=== PATIENT | male | born 1990 | race Caucasian/White ===

== ENCOUNTER 2023-08-05 13:56 | Emergency (ER) | payer OTHER, SELFPAY ==
--- NOTE | ~2023-08-05 | US_ITS ---
EXAMINATION: US VENOUS ULTRASOUND WITH DOPPLER LOWER EXTREMITY, LEFT CLINICAL INFORMATION: Swelling COMPARISON: None available. TECHNIQUE: Ultrasound of the deep veins is performed from the hip to the calf with compression sonography and color and pulse Doppler assessment. Spectral analysis with color-flow imaging is performed. FINDINGS: There is echogenic, occlusive clot is identified in the external iliac vein, common femoral vein or popliteal vein, greater saphenous vein. This veins are not compressible and revealed normal respiratory variations and augmentations. Evaluation of veins below the knee is limited due to edema There is no significant popliteal fossa cyst. US/US venous duplex LE LT IMPRESSION: DVT demonstrated in the left lower extremity.
--- NOTE | 2023-08-05 15:02 | ED_ITS ---
HPI - General Adult General Chief complaint: Extremity Injury, Lower Stated complaint: L Groin Leg Swelling S/P Injury Last Wk Time Seen by Provider: 08/05/23 17:12 Source: patient Mode of arrival: ambulatory Limitations: no limitations History of Present Illness HPI narrative: Patient comes to the emergency room complaining of 2 days of lower extremity edema and pain. Patient states that approximately a week ago, patient was helping friend move, patient thought that he injured his back and groin area with heavy lifting. Patient went to another hospital few days ago, patient was diagnosed with sciatica, prescribed prednisone and gabapentin. Patient states that yesterday he woke up with a swollen leg, patient was hoping that he would go away by itself. However, today patient woke up with worsening swelling and pain of the left lower extremity. Patient denies any chest pain or shortness of breath. Related Data Previous Rx's Medication Instructions Recorded apixaban 5 mg (74 tabs) tablets in 5 mg PO BID #74 ea 08/05/23 a dose pack (Reactful DVT-PE Treat 30D Start) oxycodone 5 mg tablet 5 mg PO BID PRN pain #7 tabs 08/05/23 Allergies Allergy/AdvReac Type Severity Reaction Status Date / Time No Known Allergies Allergy Verified 08/05/23 15:07 Review of Systems 2 Review of Systems: Constitutional : No Weight loss, No Fever, No Chills, No Night Sweats, No Fatigue, No Malaise ENT/Mouth : No Hearing loss, No Ear Pain, No Nasal Congestion, No Sinus Pain, No Hoarseness, No sore throat, No Rhinorrhea, No Swallowing Difficulty Eyes: No Eye Pain, No Swelling, No Redness, No Foreign Body, No Discharge, No Vision Changes Cardiovascular : No Chest Pain, No SOB, No Dyspnea on Exertion, No Orthopnea, No Edema, No Palpitations Respiratory : No Cough, No Sputum, No Wheezing, No Smoke Exposure, No Dyspnea Gastrointestinal : No Nausea, No Vomiting, No Diarrhea, No Constipation, No abdominal Pain, No Hematochezia, No Melena Genitourinary : no irregular bleeding, No Dysuria, No Urinary Frequency, No Hematuria, No Urinary Incontinence, No Urgency, No Flank Pain, No Urinary Flow Changes, No Hesitancy Musculoskeletal : Complaining of left lower extremity swelling and pain Skin : No Skin Lesions, No rash Neuro : No Weakness, No Numbness, No Paresthesias, No Loss of Consciousness, No Dizziness, No Headache Psych : No Anxiety/Panic, No Depression, No SI/HI/AH/VH, No Social Issues, Heme/Lymph: No Bruising, No Bleeding,No Lymphadenopathy Endocrine : No Polyuria, No Polydipsia, No Temperature Intolerance [facility] Past Medical History Medical History (Updated 08/05/23 @ 17:30 by Dana Jacobsen MD) DVT (deep venous thrombosis) Social History Social History Advance Directives: No Advance Directives Information Provided: Yes Physical Exam ED Vital Signs: Vital Signs - 24 hr 08/05/23 15:06 08/05/23 17:07 Temperature 98 F 98.2 F Pulse Rate 93 94 Respiratory Rate 22 H 16 Blood Pressure 143/88 H 117/70 Pulse Oximetry 100 97 Oxygen Delivery Method Room Air Room Air BMI result Body Mass Index 37.0 Const Other: Appearance: Alert. Oriented X3. No acute distress. Eyes: Pupils equal, round and reactive to light. ENT: Pharynx normal. Neck: Normal inspection. Neck supple. No lymph nodes noted. No crepitus CVS: Normal heart rate and rhythm. Pulses normal. Normal S1 and S2 Respiratory: No respiratory distress. Breath sounds normal. No Wheezing. No rales Abdomen: Soft and nontender. No rigidity. No distention. Skin: Skin warm and dry. Normal skin color. Normal skin turgor. Extremities: Left lower extremity is significantly more swollen than the right leg. Pain to palpation in the groin area. Plus three pitting edema, no signs of cellulitis Neuro: Oriented X 3. No motor deficit. No sensory deficit. Moving all extremities. No slurred speech. CN 2 through 12 grossly intact Psych: calm, cooperative, normal affect Course Course Course Narrative: This is an RME: Additional HPI, ROS, PE not included below will be deferred to primary provider. This is a [id number], with no known medical history, presenting to the emergency department with a complaint of left leg pain. 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 He states that the next day he started to have back pain radiating down his leg. He went to [facility] and was told that he had sciatica and was discharged on prednisone and gabapentin. He states that the pain is severe and radiates down his entire leg. 3+ pitting edema noted to left lower leg with tenderness. No recent travel, surgeries, hospitalizations. No CP or SOB. Plan: Labs, Xray, US LLE Medical Decision Making Medical Decision Making [facility] Narrative: -my interpretation of labs: Patient's white blood cell count 16.3, likely reactive leukocytosis. -my interpretation of ultrasound, seems positive for DVT -I reviewed the radiology report, patient does have a DVT in the left lower extremity. -I discussed with the patient that I recommend to start blood thinners today. Discussed with the patient risks versus benefits. Patient agreeable. Also, discussed with the patient that if he has any trauma especially to the head, patient is to return to the emergency room, also instructed make sure that he does not have any black stool or blood in the stool. -patient was given the 1st dose of Eliquis in the emergency room, 10 mg Differential Diagnosis Differential Diagnoses: The differential diagnosis associated with the presentation includes (Lower extremity edema, DVT, inguinal strain) Lab Data [facility] Lab Attestation statement: I reviewed the patient's lab results. 08/05/23 15:18 08/05/23 15:18 Labs: Lab Results 08/05/23 Range/Units 15:18 WBC 16.3 H (4.8-10.8) X10*3/uL RBC 4.51 L (4.60-5.80) X10*6/uL Hgb 14.3 (14.0-18.0) g/dl Hct 42.8 (42.0-52.0) % MCV 94.9 (80.0-98.0) fL MCH 31.7 (27.0-33.0) pg MCHC 33.4 (31.0-36.0) g/dl RDW 13.2 (11.0-16.0) % Plt Count 205 (160-400) X10*3/uL MPV 9.4 (9.4-12.4) fL Immature Gran % (Auto) 0.5 H (0.0-0.4) % Neut % (Auto) 81.4 H (45-73) % Lymph % (Auto) 12.4 L (20-40) % [place] % (Auto) 5.3 (2-11) % Eos % (Auto) 0.2 (0-4) % Baso % (Auto) 0.2 (0-2) % Lymph # (Auto) 2.0 (1.2-4.9) X10*3/uL [place] # (Auto) 0.9 (0.1-1.2) X10*3/uL Eos # (Auto) 0.0 (0.0-0.4) X10*3/uL Baso # (Auto) 0.0 (0.0-0.2) X10*3/uL Abs Immat Gran (auto) 0.08 H (0.00-0.03) X10*3/uL Absolute Neuts (auto) 13.3 H (2.0-8.3) x10*3/uL Absolute Nucleated RBC 0.000 (0.0-0.012) X10*3/uL Nucleated RBC % (auto) 0.0 (0.0-0.2) /100WBC PT 11.9 (11.1-13.3) SEC INR 1.0 (0.9-1.1) APTT 29.1 (26.0-36.4) SEC Sodium 137 (135-145) mmol/L Potassium 4.7 (3.3-5.1) mmol/L Chloride 102 (96-108) mmol/L Carbon Dioxide 29 (22-29) mmol/L Anion Gap 11 L (12-20) BUN 13 (9-16) mg/dL Creatinine 0.76 (0.5-1.4) mg/dL Estim Creat Clear Calc 180.6 Estimated GFR > 60 Random Glucose 91 (60-115) mg/dL Calcium 9.1 (8.4-10.2) mg/dL Total Bilirubin 0.6 (0.0-1.0) mg/dL Direct Bilirubin 0.2 (0.0-0.5) mg/dL AST 26 (5-37) U/L ALT 47 H (0-40) U/L Alkaline Phosphatase 65 (39-117) U/L Total Protein 7.8 (6.5-8.0) g/dL Albumin 4.0 (3.5-5.0) g/dL Independent Interpretation I performed an independent interpretation of an: Ultrasound Radiology Impression Discussion of test interpretation with radiology: I have reviewed the radiologist's reading. Radiologist Impression: FINDINGS: There is echogenic, occlusive clot is identified in the external iliac vein, common femoral vein or popliteal vein, greater saphenous vein. This veins are not compressible and revealed normal respiratory variations and augmentations. Evaluation of veins below the knee is limited due to edema There is no significant popliteal fossa cyst. US/US venous duplex LE LT IMPRESSION: DVT demonstrated in the left lower extremity. Critical Care Time Critical Care Time Critical Care Time: Yes Total Critical Care Time: 45 Attestation: I have personally provided critical care time. Time includes review of lab data, radiology results, discussion with consultants, and monitoring for potential decompensation. Intervention performed as documented. Discharge Plan Discharge Clinical Impression: Acute deep vein thrombosis (DVT) of left lower extremity Patient Disposition: Home, Self-Care Instructions: Apixaban (By mouth), Deep Vein Thrombosis (ED) Additional Instructions: Please follow-up with your primary care physician tomorrow. If you have any worsening or new symptoms, please return to the emergency room or call 911 Prescriptions: New Musa DVT-PE Treat 30D Start 5 mg (74 tabs) tablets,dose pack 5 mg PO BID Qty: 74 0RF Rx Instructions: 10 mg b.i.d. for 7 days, then 5 mg b.i.d. oxycodone 5 mg tablet 5 mg PO BID PRN (Reason: pain) Qty: 7 0RF Rx Instructions: Partial Fill upon patient request.
[2023-08-05 15:06] VITALS: BP 143/88; PULSE 93; RESP 22; TEMP 36.6; O2SAT 100; BMI 37.0
[2023-08-05 15:23] LABS: MANUAL DIFF FLAG NO
[2023-08-05 15:26] LABS: Basophils Percent Auto 0.2 % (0-2); Eosinophils Percent Auto 0.2 % (0-4); Hematocrit 42.8 % (42.0-52.0); Hemoglobin 14.3 g/dl (14.0-18.0); Imm Gran Abs Auto 0.08 X10*3/uL (0.00-0.03); Imm Gran Pct Auto 0.5 % (0.0-0.4); Lymphocytes Percent Auto 12.4 % (20-40); Mean Corpuscular HGB Conc 33.4 g/dl (31.0-36.0); Mean Corpuscular Hemoglobin 31.7 pg (27.0-33.0); Mean Corpuscular Volume 94.9 fL (80.0-98.0); Mean Platelet Volume 9.4 fL (9.4-12.4); Monocytes Absolute Auto 0.9 X10*3/uL (0.1-1.2); Monocytes Percent Auto 5.3 % (2-11); Neutrophils Absolute Auto 13.3 x10*3/uL (2.0-8.3); Neutrophils Percent Auto 81.4 % (45-73); Platelet Count 205 X10*3/uL (160-400); Red Blood Count 4.51 X10*6/uL (4.60-5.80); Red Cell Distribution Width 13.2 % (11.0-16.0); White Blood Count 16.3 X10*3/uL (4.8-10.8)
[2023-08-05 15:34] LABS: Prothrombin Time 11.9 SEC (11.1-13.3)
[2023-08-05 15:37] LABS: Partial Thromboplastin Time 29.1 SEC (26.0-36.4)
[2023-08-05 15:38] LABS: Alanine Aminotransferase 47 U/L (0-40); Alkaline Phosphatase 65 U/L (39-117); Anion Gap 11 (12-20); Aspartate Amino Transferase 26 U/L (5-37); Bilirubin Direct 0.2 mg/dL (0.0-0.5); Bilirubin Total 0.6 mg/dL (0.0-1.0); Blood Urea Nitrogen 13 mg/dL (9-16); Calcium 9.1 mg/dL (8.4-10.2); Carbon Dioxide 29 mmol/L (22-29); Chloride 102 mmol/L (96-108); Creatinine Clr Calc Pharmacy 180.6; Estimated Glomerular Filt Rate > 60; Glucose Random 91 mg/dL (60-115); Potassium 4.7 mmol/L (3.3-5.1); Sodium 137 mmol/L (135-145); Total Protein 7.8 g/dL (6.5-8.0)
[2023-08-05 17:07] VITALS: BP 117/70; PULSE 94; RESP 16; TEMP 36.8; O2SAT 97
--- NOTE | 2023-08-05 17:08 | MHC.EDTECH ---
This pct just assumed care of patient ,vitals taken .
[2023-08-05] MEDS: oxyCODONE HCl Immed Release 5 MG TABLET PO (17:44)
[2023-08-05] MEDS: Apixaban 5 MG TABLET 10 MG PO (17:45)
--- NOTE | 2023-08-05 17:48 | PC.NURSE ---
medication administered per provider order. crutch training being formed by tech. pt provided w/ d/c paperwork - able to leave facility once crutches information is relayed.
== END 2023-08-05 17:56 | disposition home or self-care (01) ==
PROVIDERS: Physician Assistant Medical; Emergency Provider Emergency Medicine
DX: I82.402 Acute embolism and thrombosis of unspecified deep veins of left lower extremity (principal); R60.0 Localized edema; M54.50 Low back pain, unspecified; Z79.899 Other long term (current) drug therapy
CPT/HCPCS: 36415; 80048; 80076; 85025; 85610; 85730; 93971; 99284

== ENCOUNTER 2023-08-07 13:42 | Inpatient (IN) | payer OTHER, SELFPAY ==
--- NOTE | ~2023-08-07 | CT_ITS ---
EXAMINATION: CT CHEST ANGIOGRAM PE PROTOCOL CLINICAL INFORMATION: , Reason for Exam known DVT. chest pain. PE? COMPARISON: None TECHNIQUE: Volumetric imaging was performed through the chest. Reformatted coronal and sagittal imaging was performed. 3-D MIP images performed at a dedicated separate workstation. This CT examination was performed using dose optimization techniques as appropriate, variously including the following: *Automated exposure control *Adjustment of mA and/or kV according to patient size (this includes techniques or standardized protocols for targeted exams where dose is matched to indication/reason for exam; i.e. extremities or head) *Use of iterative reconstruction technique CONTRAST: 65 mL of Omnipaque 350 injected DLP: 494 FINDINGS: PULMONARY ARTERIES: There are small partially occlusive emboli in peripheral secondary and tertiary branches of the right and left pulmonary arteries bilaterally. Gonzalez images. There are no large central emboli, no CT evidence of cardiac strain or septal bowing. LINES/TUBES: None LUNGS: Lung Parenchyma: There is no CT evidence of significant lung parenchymal disease. Lung Nodules:There are no significant lung nodules. AIRWAYS: Trachea and bronchi are normal. PLEURA: No pleural effusion or pneumothorax. MEDIASTINUM AND CHERYL: The visualized thyroid gland is unremarkable. No mediastinal, hilar or axillary lymphadenopathy. There is no mediastinal mass. VESSELS: Thoracic aorta is normal in size. HEART AND PERICARDIUM: Heart is normal in size. There is no pericardial effusion. There are no coronary calcifications. CHEST WALL, LOWER NECK, SURROUNDING SOFT TISSUES: Normal VISUALIZED ABDOMEN: Unremarkable BONES: The visualized bony thorax is within normal limits. CT/CT angio chest PE protocol IMPRESSION: * Positive PE. There are small partially occlusive small emboli in secondary and tertiary branches of the right and left pulmonary arteries bilaterally. Gonzalez images. There are no large central emboli, no CT evidence of cardiac strain or septal bowing. * Lungs are clear.
--- NOTE | ~2023-08-07 | US_ITS ---
EXAMINATION: US VENOUS ULTRASOUND WITH DOPPLER LOWER EXTREMITY, LEFT CLINICAL INFORMATION: Pain and swelling. Pulmonary embolism COMPARISON: 08/05/2023 TECHNIQUE: Ultrasound of the deep veins is performed from the hip to the calf with compression sonography and color and pulse Doppler assessment. Spectral analysis with color-flow imaging is performed. FINDINGS: Again note is made of acute appearing thrombus extending from the left external iliac vein through to the popliteal vein. The calf veins are difficult to evaluate but the mid posterior tibial vein and distal posterior tibial vein appear grossly patent. The extension of the deep venous thrombosis appears similar to the 08/05/2023 study. There is no significant popliteal fossa cyst. US/US venous duplex LE LT IMPRESSION: Again note is made of acute appearing thrombus extending from the left external iliac vein through to the popliteal vein. This appears similar to the 08/05/2023 study.
[2023-08-07 13:55] VITALS: BP 111/78; PULSE 100; RESP 18; TEMP 36.8; O2SAT 100; BMI 42.2
--- NOTE | 2023-08-07 13:56 | ECG_ITS ---
Test Reason : sob Blood Pressure : / mmHG Vent. Rate : 088 BPM Atrial Rate : 088 BPM P-R Int : 132 ms QRS Dur : 080 ms QT Int : 366 ms P-R-T Axes : 049 004 015 degrees QTc Int : 442 ms Normal sinus rhythm Normal ECG No previous ECGs available Referred By: Venu Paul Electronically Signed By:NANCY CANO MD
--- NOTE | 2023-08-07 14:02 | ED_ITS ---
HPI - General Adult General Chief complaint: Dyspnea Stated complaint: +DVT/Diff breathing, pain Time Seen by Provider: 08/07/23 14:16 Source: patient Mode of arrival: ambulatory Limitations: no limitations History of Present Illness HPI narrative: 33 year old male recently dx w/ DVT of LLE on 08/05/23 and subsequently started on eliquis presents w/ LLE pain and swelling as well as substernal nonradiating chest pain and shortness of breath. Both of these are worse with exertion and better at rest. Patient does not have a known history of hypercoagulable disorder malignancy. Patient denies fevers, chills, nausea, vomiting, abdominal pain, smoking history, sedentary lifestyle, hormone replacement therapy. Related Data Home Medications Medication Instructions Recorded Confirmed acetaminophen 325 mg tablet 650 mg PO Q6H PRN Headache 08/07/23 08/07/23 (Tylenol) albuterol sulfate 90 mcg/actuation 2 puff inhalation Q4-6H PRN 08/07/23 08/07/23 aerosol inhaler wheezing apixaban 5 mg (74 tabs) tablets in See Rx Instructions .Route .COMPLEX 08/07/23 08/07/23 a dose pack (Eliquis DVT-PE Treat 30D Start) apixaban 5 mg tablet See Rx Instructions .Route .COMPLEX 08/07/23 08/07/23 lidocaine 5 % topical patch 1 patch topical DAILY PRN mild pain 08/07/23 08/07/23 Allergies Allergy/AdvReac Type Severity Reaction Status Date / Time No Known Allergies Allergy Verified 08/07/23 13:55 Review of Systems 2 Review of Systems: Constitutional : No Weight loss, No Fever, No Chills, No Fatigue, No Malaise ENT/Mouth : No sore throat, No Rhinorrhea Eyes: No Eye Pain, No Swelling, No Redness Cardiovascular : No Chest Pain, + SOB, No Dyspnea on Exertion, No Orthopnea, No Edema, No Palpitations Respiratory : No Cough, No Sputum, No Wheezing Gastrointestinal : No Nausea, No Vomiting, No Diarrhea, No Constipation, No abdominal Pain, No Hematochezia, No Melena Genitourinary : No Dysuria, No Urinary Frequency, No Hematuria, Musculoskeletal : No joint pain, No Myalgias, + lower extremity Swelling Skin : No Skin Lesions, No rash Neuro : No Weakness, No Numbness, No Dizziness, No Headache Psych : No Anxiety/Panic, No Depression All other systems reviewed and are negative Yes all other systems are reviewed and are negative [facility] Past Medical History Attestation statement: The following information was validated with the patient. Source: old records reviewed and nursing notes reviewed Medical History DVT (deep venous thrombosis) Family History Family History (Updated 08/07/23 @ 18:08 by FAROOQ Chanel) Other Blood clotting tendency Social History Social History Household Members: Family Housing: Apartment Do you presently have visiting nurse or other home services: No Alcohol intake: current Alcohol intake frequency: holidays/special occasions only Patient Tobacco Use Status: Former Tobacco user Tobacco use type: Cigarette Smoked in Last 30 Days: No Patient Interested in Nicotine Replacement: No Patient Given Instructions on How to Stop Smoking: No Use of substances other than those prescribed or required for medical reasons: No Substance Use Type: Caffiene Currently Displaying Signs/Symptoms of Drug Intoxication Withdrawal: No Any prior treatment program specific to substance use: No Have you been hit, kicked, punched, or otherwise hurt by someone within the past year? If so, by whom?: No Do you feel safe in your current relationship?: No Is there a partner from a previous relationship who is making you feel unsafe now?: No Are you made to feel afraid or neglected: No Advance Directives: No Advance Directives Information Provided: No Advance Directives on File: No Do you have thoughts of harming others: None Do you have a plan to hurt others: No Plan Recently lost weight without trying: No Eating poorly because of decreased appetite: No Nutrition Risks: No Nutritional Risk Poor oral hygiene: No service: No Physical Exam ED Vital Signs: Vital Signs - 24 hr 08/07/23 13:55 08/07/23 16:51 Temperature 98.2 F Pulse Rate 100 93 Respiratory Rate 18 15 Blood Pressure 111/78 122/75 Pulse Oximetry 100 Oxygen Delivery Method Room Air BMI result Body Mass Index 42.2 vss Appearance: Alert.? Oriented X3.? No acute distress.? Head: Normocephalic, atraumatic, no step-offs or deformities Eyes: Pupils equal, round and reactive to light.? Neck: Normal inspection.? Neck supple.? CVS: Normal heart rate and rhythm.? Pulses normal.? Respiratory: No respiratory distress.? Breath sounds normal.? Abdomen: Soft and nontender.? Skin: Skin warm and dry.? Normal skin color.? Normal skin turgor.? Extremities: 5/5 strength to bilateral upper and lower extremities 2+ DP, AT,PT pulsees equal and b/l. LLE swollen 3+ pitting . Normal RLE. Neuro: Oriented X 3.? No motor deficit.? No sensory deficit. CN 2-12 intact Course Course Course Narrative: RME: 33 yold male presents to the ED for left leg swelling with known DVT since last tuesday presents to the ED For chest pain and shorrtness of breath with sorsenin left leg pain. labs, US, and chest CTA ordered. faviola to roomt 22. Vital signs stable Reevaluation(s) Reevaluation #1: CBC with slight leukocytosis, improved when compared to labs on 08/05/2023. There is a normocytic anemia noted. Chemistry unremarkable. Troponin, BNP pending. Time: 15:14 Reevaluation #2: Normal trop and BNp. CTA showing positive pulmonary embolism a small partially occlusive small emboli in the secondary and tertiary branches of the right and left pulmonary arteries. Spoke to Dr. Umana who recommends transitioning to heparin and hospital admission. It will order heparin at this time with bolus as instructed by Dr. Umana. Plan is for hospital admission hospitalist aware. No reports of bleeding prior to initiating heparin. Time: 16:05 Medications Administered Generic Name Dose Route Start Last Admin Trade Name Belinda PRN Reason Stop Dose Admin Acetaminophen 650 mg 08/07/23 16:58 08/08/23 04:11 Acetaminophen 325 Mg Tablet PO 650 mg Q6H PRN Administration Pain, Mild (Pain Scale 1-3) Heparin Sodium (Porcine) 5,500 unit 08/07/23 16:40 08/08/23 08:08 Heparin Sodium,Porcine 5,000 Unit/Ml Vial 40 unit/kg (5500 unit) 5,500 unit IVPUSH Administration PROTOCOL BOLUS PRN 40 unit/kg - Heparin Protocol Protocol Heparin Sodium/Sodium Chloride 25,000 unit in 250 mls @ 0 mls/hr 08/07/23 16:45 08/08/23 08:06 Heparin Sodium,Porcine/1/2ns IVCONT 14 units/kg/hr .Q0M LIBRA 19.21 mls/hr Administration Protocol Per Protocol Morphine Sulfate 4 mg 08/07/23 19:00 08/08/23 08:19 Morphine Sulfate 4 Mg/Ml Cartridge IVPUSH 4 mg Q4H PRN Administration Pain, Severe (Pain Scale 7-10) Protocol Oxycodone HCl 5 mg 08/08/23 09:31 08/08/23 10:53 Oxycodone Hcl Immed Release 5 Mg Tablet PO 5 mg Q4H PRN Administration Pain, Mild (Pain Scale 1-3) Sodium Chloride 3 ml 08/08/23 00:00 08/08/23 08:10 0.9 % Sodium Chloride Flush 3 Ml Syringe IVFLUSH Not Given QSHIFT [facility] Discontinued Medications Generic Name Dose Route Start Last Admin Trade Name Freq PRN Reason Stop Dose Admin Heparin Sodium (Porcine) 10,000 unit 08/07/23 16:40 08/07/23 17:41 Heparin Sodium,Porcine 5,000 Unit/Ml Vial IVPUSH 08/07/23 16:41 10,000 unit ONCE ONE Administration Iohexol 100 ml 08/07/23 15:44 08/07/23 15:44 Iohexol 350 Mg/Ml 100 Ml Infus..Btl IV 08/07/23 15:45 65 ml ONCE ONE Administration Morphine Sulfate 4 mg 08/07/23 16:05 08/07/23 16:09 Morphine Sulfate 4 Mg/Ml Cartridge IVPUSH 08/07/23 16:06 4 mg ONCE ONE Administration Protocol Ondansetron HCl 4 mg 08/07/23 15:45 08/07/23 16:07 Ondansetron Hcl 4 Mg/2 Ml Vial IVPUSH 08/07/23 15:46 4 mg ONCE ONE Administration Medical Decision Making Medical Decision Making [facility] Narrative: 1419 33-year-old male presents with left lower extremity swelling and pain as well as chest pain and shortness of breath for the past few days worsening. Recently diagnosed with DVT and started on Eliquis med compliant. Physical examination significant for 5/5 strength to bilateral upper and lower extremities 2+ DP, AT,PT pulsees equal and b/l. LLE swollen 3+ pitting . Normal RLE. This is likely DVT causing the pain on likely arterial occlusion or threat to limb. Will rule out pulmonary embolism. Unlikely ACS, dissection, pneumothorax or up pneumonia. Plan labs, imaging. Differential Diagnosis Differential Diagnoses: The differential diagnosis associated with the presentation includes This is likely DVT causing the pain on likely arterial occlusion or threat to limb. Will rule out pulmonary embolism. Unlikely ACS, dissection, pneumothorax or up pneumonia. Admission/Observation Consideration of admission/observation: Escalation of care including admission/observation considered possible Lab Data 08/08/23 06:44 08/08/23 06:44 Labs: Lab Results 08/07/23 08/07/23 Range/Units 14:43 16:57 WBC 11.4 H 11.5 H (4.8-10.8) X10*3/uL RBC 4.10 L 3.91 L (4.60-5.80) X10*6/uL Hgb 13.0 L 12.3 L (14.0-18.0) g/dl Hct 38.8 L 36.8 L (42.0-52.0) % MCV 94.6 94.1 (80.0-98.0) fL MCH 31.7 31.5 (27.0-33.0) pg MCHC 33.5 33.4 (31.0-36.0) g/dl RDW 13.0 13.1 (11.0-16.0) % Plt Count 225 210 (160-400) X10*3/uL MPV 8.7 L 8.8 L (9.4-12.4) fL Immature Gran % (Auto) 0.4 (0.0-0.4) % Neut % (Auto) 69.8 (45-73) % Lymph % (Auto) 18.6 L (20-40) % [place] % (Auto) 8.9 (2-11) % Eos % (Auto) 1.7 (0-4) % Baso % (Auto) 0.6 (0-2) % Lymph # (Auto) 2.1 (1.2-4.9) X10*3/uL [place] # (Auto) 1.0 (0.1-1.2) X10*3/uL Eos # (Auto) 0.2 (0.0-0.4) X10*3/uL Baso # (Auto) 0.1 (0.0-0.2) X10*3/uL Abs Immat Gran (auto) 0.05 H (0.00-0.03) X10*3/uL Absolute Neuts (auto) 8.0 (2.0-8.3) x10*3/uL Absolute Nucleated RBC 0.000 0.000 (0.0-0.012) X10*3/uL Nucleated RBC % (auto) 0.0 0.0 (0.0-0.2) /100WBC PT 15.0 H D 14.6 H (11.1-13.3) SEC INR 1.2 H 1.2 H (0.9-1.1) APTT 35.3 D (26.0-36.4) SEC aPTT Heparin Protocol 34.2 L (53-77.9) SEC Sodium 139 (135-145) mmol/L Potassium 4.1 (3.3-5.1) mmol/L Chloride 101 (96-108) mmol/L Carbon Dioxide 29 (22-29) mmol/L Anion Gap 13 (12-20) BUN 10 (9-16) mg/dL Creatinine 0.81 (0.5-1.4) mg/dL Estim Creat Clear Calc 181.8 Estimated GFR > 60 Random Glucose 95 (60-115) mg/dL Calcium 9.1 (8.4-10.2) mg/dL Total Bilirubin 0.8 (0.0-1.0) mg/dL AST 27 (5-37) U/L ALT 41 H (0-40) U/L Alkaline Phosphatase 59 (39-117) U/L Troponin I High Sens < 2.7 (<3.5-35.0) ng/L B-Natriuretic Peptide 15 (<100) pg/mL Total Protein 7.2 (6.5-8.0) g/dL Albumin 3.5 (3.5-5.0) g/dL Critical Care Time Critical Care Time Critical Care Time: Yes Total Critical Care Time: 45 Attestation: I attest to this time spent taking care of the patient, obtaining history, physical, reviewing labs, imaging, speaking to my attending, speaking to specialist. Discharge Plan Discharge Clinical Impression: DVT (deep venous thrombosis) Qualifiers: DVT location: lower extremity Affected thrombotic vein of extremity: iliac C hronicity: acute Laterality: left Qualified Code(s): I82.422 - Acute embolism and thrombosis of left iliac vein Pulmonary embolism Qualifiers: Pulmonary embolism type: multiple subsegmental (without acute cor pulmonale) Q ualified Code(s): I26.94 - Multiple subsegmental pulmonary emboli without acute cor pulmonale Patient Disposition: Admitted As Inpatient Interventions: Admission Worksheet (ED) Last Done: 08/07/23 22:04 Discharge Date/Time: 08/07/23 22:07
[2023-08-07 14:50] LABS: MANUAL DIFF FLAG NO
[2023-08-07 14:54] LABS: Basophils Absolute Auto 0.1 X10*3/uL (0.0-0.2); Basophils Percent Auto 0.6 % (0-2); Eosinophils Absolute Auto 0.2 X10*3/uL (0.0-0.4); Eosinophils Percent Auto 1.7 % (0-4); Hematocrit 38.8 % (42.0-52.0); Imm Gran Abs Auto 0.05 X10*3/uL (0.00-0.03); Imm Gran Pct Auto 0.4 % (0.0-0.4); Lymphocytes Absolute Auto 2.1 X10*3/uL (1.2-4.9); Lymphocytes Percent Auto 18.6 % (20-40); Mean Corpuscular HGB Conc 33.5 g/dl (31.0-36.0); Mean Corpuscular Hemoglobin 31.7 pg (27.0-33.0); Mean Corpuscular Volume 94.6 fL (80.0-98.0); Mean Platelet Volume 8.7 fL (9.4-12.4); Monocytes Percent Auto 8.9 % (2-11); Neutrophils Percent Auto 69.8 % (45-73); Platelet Count 225 X10*3/uL (160-400); White Blood Count 11.4 X10*3/uL (4.8-10.8)
[2023-08-07 15:00] LABS: INTERNATIONAL NORM RATIO 1.2 (0.9-1.1)
[2023-08-07 15:03] LABS: Partial Thromboplastin Time 35.3 SEC (26.0-36.4)
[2023-08-07 15:08] LABS: Alanine Aminotransferase 41 U/L (0-40); Albumin Level 3.5 g/dL (3.5-5.0); Alkaline Phosphatase 59 U/L (39-117); Anion Gap 13 (12-20); Aspartate Amino Transferase 27 U/L (5-37); Bilirubin Total 0.8 mg/dL (0.0-1.0); Blood Urea Nitrogen 10 mg/dL (9-16); Calcium 9.1 mg/dL (8.4-10.2); Carbon Dioxide 29 mmol/L (22-29); Chloride 101 mmol/L (96-108); Creatinine Clr Calc Pharmacy 181.8; Estimated Glomerular Filt Rate > 60; Glucose Random 95 mg/dL (60-115); Potassium 4.1 mmol/L (3.3-5.1); Sodium 139 mmol/L (135-145); Total Protein 7.2 g/dL (6.5-8.0)
--- NOTE | 2023-08-07 15:10 | PC.NURSE ---
pt comes in with increasing SOB and also reports chest pain after DVT dx on elequis. edema noted in pt left upper and lower leg. 10/10 pain in the groin area. pt on monitor - NSR. labs drawn and IV inserted. CT angio pending.
[2023-08-07 15:14] LABS: B Type Natriuretic Peptide 15 pg/mL (<100)
[2023-08-07 15:17] LABS: Troponin-I High Sensitivity < 2.7 ng/L (<3.5-35.0)
[2023-08-07] MEDS: iohexoL 350 MG/ML 100 ML INFUS..BTL IV (15:44)
[2023-08-07] MEDS: ondansetron HCL 4 MG/2 ML VIAL IVPUSH (16:07)
[2023-08-07] MEDS: Morphine Sulfate 4 MG/ML CARTRIDGE IVPUSH ×3 (16:09→23:50)
[2023-08-07 16:51] VITALS: BP 122/75; PULSE 93; RESP 15
[2023-08-07 17:01] LABS: Hematocrit 36.8 % (42.0-52.0); Hemoglobin 12.3 g/dl (14.0-18.0); Mean Corpuscular HGB Conc 33.4 g/dl (31.0-36.0); Mean Corpuscular Hemoglobin 31.5 pg (27.0-33.0); Mean Corpuscular Volume 94.1 fL (80.0-98.0); Mean Platelet Volume 8.8 fL (9.4-12.4); Platelet Count 210 X10*3/uL (160-400); Red Blood Count 3.91 X10*6/uL (4.60-5.80); Red Cell Distribution Width 13.1 % (11.0-16.0); White Blood Count 11.5 X10*3/uL (4.8-10.8)
--- NOTE | 2023-08-07 17:01 | P.HPHOSP_ITS ---
History of Present Illness Date of Service: 08/07/23 Attending physician on admission: Nannette Silva Chief Complaint: Shortness of breath Pt is a 33-year-old male with recently diagnosed with DVT of left lower extremity and start Eliquis who presents to the ED with?non radiating substernal chest pain and intermittent shortness of breath. Patient states symptoms began last night and continued this morning. SOB worse with exertion and better at rest. Chest pain subsided right before being admitted to the ED but SOB has persisted. Patient is also complaining of left lower extremity swelling and pain from his knee to his groin. States symptoms began last week when he felt pain in his left hip/lower back. Patient thought he had pulled muscle after working outside in the yard and moving a lot of brush. Initially presented to [facility] where he was diagnosed with a pinched sciatic nerve and bulging disc and sent home on prednisone and gabapentin. Symptoms worsened earlier this week patient began to experience swelling and pain in his left lower extremity. Patient then presented to the ED here where ultrasound of his left lower extremity was positive for DVT. Patient was started on Eliquis and sent home. Patient is a previous smoker who quit 2-3 years ago. States this is his 1st time having any issues with blood clots, though notes he has a significant family history of blood clots, saying his mother, father, and multiple aunts and uncles on both sides have experienced problems with clotting. In the ED pt was Labs were significant for slight leukocytosis of 11.4, H&H 13.0/38.8, otherwise grossly unremarkable. Electrolytes WNL. Renal and hepatic function WNL. Troponins, BNP negative. Venous duplex of left lower extremity 2 days prior on 08/05/2023 positive for DVT in the external iliac vein, common femoral vein, and greater saphenous vein. CTA showed small partially occlusive small emboli in secondary and tertiary branches of the right and left pulmonary arteries bilaterally, with no large central emboli, evidence of cardiac strain, or septal bowing noted.?EKG demonstrated normal sinus rhythm with no evidence of ST elevations or depressions. Pt was treated with ondansetron, morphine, and started on a heparin drip after speaking with vascular surgery. Pt will be admitted to the hospital for treatment and further evaluation of bilateral pulmonary emboli likely secondary to left lower extremity DVT. Review of Systems 2 Review of Systems: Nonradiating sharp substernal chest pain Shortness of breath worse with exertion Left lower extremity swelling and pain Denies fever, chills, nausea, vomiting No abdominal pain PMFSH Medical History DVT (deep venous thrombosis) Family History (Updated 08/07/23 @ 18:08 by FAROOQ Chanel) Other Blood clotting tendency Social History Alcohol intake: current Alcohol intake frequency: holidays/special occasions only Meds Allergies Allergy/AdvReac Type Severity Reaction Status Date / Time No Known Allergies Allergy Verified 08/07/23 13:55 Active Medications: Current Medications Heparin Sodium (Porcine) (Heparin Sodium,Porcine 5,000 Unit/Ml Vial) 5,500 unit 40 unit/kg (5500 unit) IVPUSH PROTOCOL BOLUS PRN; Protocol PRN Reason: 40 unit/kg - Heparin Protocol Heparin Sodium (Porcine) (Heparin Sodium,Porcine 5,000 Unit/Ml Vial) 10,000 unit IVPUSH PROTOCOL BOLUS PRN; Protocol PRN Reason: 80 unit/kg - Heparin Protocol Heparin Sodium/Sodium Chloride (Heparin Sodium,Porcine/1/2ns) 25,000 unit in 250 mls @ 0 mls/hr IVCONT .Q0M [facility]RA; Protocol Home Medications Medication Instructions Recorded Confirmed Last Taken Type acetaminophen 325 mg tablet 650 mg PO Q6H PRN Headache 08/07/23 08/07/23 Unknown History (Tylenol) albuterol sulfate 90 mcg/actuation 2 puff inhalation Q4-6H PRN 08/07/23 08/07/23 Unknown History aerosol inhaler wheezing apixaban 5 mg (74 tabs) tablets in See Rx Instructions .Route .COMPLEX 08/07/23 08/07/23 08/07/23 History a dose pack (Eliquis DVT-PE Treat 30D Start) apixaban 5 mg tablet See Rx Instructions .Route .COMPLEX 08/07/23 08/07/23 Unknown History lidocaine 5 % topical patch 1 patch topical DAILY PRN mild pain 08/07/23 08/07/23 Unknown History Physical Exam 2 Vital Signs and Narrative: Vital Signs: Last Vital Signs Temp 98.2 F 08/07/23 13:55 Pulse 93 08/07/23 16:51 Resp 15 08/07/23 16:51 BP 122/75 08/07/23 16:51 Pulse Ox 100 08/07/23 13:55 O2 Del Method Room Air 08/07/23 13:55 BMI result Body Mass Index 42.2 General: AOx3, no acute distress Resp: CTA bilaterally CVS: S1, S2, RRR GI: +BS, NT, no distention Skin: Warm, dry Neuro: Cranial nerves II-XII grossly intact bilaterally. Motor grossly intact bilaterally Extremities: 2+ pitting edema of left lower extremity Psych: Appropriate affect Results Labs 08/07/23 14:43 08/07/23 14:43 Labs: Laboratory Results - last 24 hr 08/07/23 14:43 MCV 94.6 MCH 31.7 MCHC 33.5 RDW 13.0 Plt Count 225 MPV 8.7 L Immature Gran % (Auto) 0.4 Neut % (Auto) 69.8 Lymph % (Auto) 18.6 L Collin % (Auto) 8.9 Eos % (Auto) 1.7 Baso % (Auto) 0.6 Lymph # (Auto) 2.1 Collin # (Auto) 1.0 Eos # (Auto) 0.2 Baso # (Auto) 0.1 Abs Immat Gran (auto) 0.05 H Absolute Neuts (auto) 8.0 Absolute Nucleated RBC 0.000 Nucleated RBC % (auto) 0.0 PT 15.0 H D INR 1.2 H APTT 35.3 D Anion Gap 13 Estim Creat Clear Calc 181.8 Estimated GFR > 60 Random Glucose 95 Calcium 9.1 Total Bilirubin 0.8 AST 27 ALT 41 H Alkaline Phosphatase 59 B-Natriuretic Peptide 15 Total Protein 7.2 Albumin 3.5 Imaging Radiologist's Impressions: Impressions Chest CTA 08/07/23 15:51 IMPRESSION: * Positive PE. There are small partially occlusive small emboli in secondary and tertiary branches of the right and left pulmonary arteries bilaterally. Gonzalez images. There are no large central emboli, no CT evidence of cardiac strain or septal bowing. * Lungs are clear. Assessment and Plan (1) Pulmonary embolism: Qualifiers: Pulmonary embolism type: multiple subsegmental (without acute cor pulmonale) Qualified Code(s): I26.94 - Multiple subsegmental pulmonary emboli without acute cor pulmonale Status: Acute (2) DVT (deep venous thrombosis): Qualifiers: DVT location: lower extremity Affected thrombotic vein of extremity: i liac Chronicity: acute Laterality: left Qualified Code(s): I82.422 - Acute embolism and thrombosis of left iliac vein Status: Acute Plan Pt is a 33-year-old male with recently diagnosed with DVT of left lower extremity and start Eliquis who presents to the ED with?non radiating substernal chest pain and intermittent shortness of breath. Pt will be admitted to the hospital for treatment and further evaluation of bilateral pulmonary emboli likely secondary to left lower extremity DVT. Bilateral pulmonary embolism Venous duplex of left lower extremity on 08/05/2023 positive for DVT in external iliac vein, common femoral vein, and greater saphenous vein Chest CTA today showed small partially occlusive small emboli in secondary and tertiary branches of the right and left pulmonary arteries bilaterally with no large central emboli or cardiac strain or septal bowing Unclear etiology: Active 33-year-old male, though has strong family history on both sides of blood clots Will hold Eliquis Patient was placed on heparin drip Vascular surgery consult Hematology consult NPO after midnight in anticipation of possible vascular surgical procedure Analgesics for pain management Full Code Attending:?Dr. Silva DVT Prophylaxis: On heparin drip Pt will require a hospitalization of at least two nights for treatment of?bilateral pulmonary emboli Likely secondary to left lower extremity DVT. Patient be treated with IV heparin drip and will receive specials consultation with possible vascular surgical intervention. Quality Stroke Does the patient have a stroke diagnosis?: No VTE Prior VTE?: No VTE Risk Level:: Medical - moderate - high VTE Device Contraindication: Treatment Not Indicated VTE Drug Contraindication: N/A - Med Ordered
[2023-08-07 17:10] LABS: INTERNATIONAL NORM RATIO 1.2 (0.9-1.1); Prothrombin Time 14.6 SEC (11.1-13.3)
[2023-08-07 17:12] LABS: PTT Heparin Drip 34.2 SEC (53-77.9)
--- NOTE | 2023-08-07 17:18 | PHA.MEDREC ---
Pharmacy Consult ? Medication Reconciliation Pharmacy has completed the medication reconciliation. Spoke to patient to confirm meds.
[2023-08-07] MEDS: Heparin Sodium,Porcine 5,000 UNIT/ML VIAL 10000 UNIT IVPUSH (17:41)
[2023-08-07] MEDS: Heparin Sodium,Porcine/1/2NS 25,000 UNIT/250 ML IV.SOLN 19.21 UNIT IVCONT (17:43)
--- NOTE | 2023-08-07 17:46 | PC.NURSE ---
heparin gtt started per NOV. orders for next PTT HD in. no bleeding, bruising, pittechea or signs of bleeding observed. awaiting admit orders and bed assignment
--- NOTE | 2023-08-07 20:21 | PC.NURSE ---
this rn assumed care of pt. pt reporting 10/10 pain in the left leg. pt medicated per nov. pt currently on heprin drip. pt sinus tachy on monitor 100-103.
[2023-08-07 22:02] VITALS: BP 125/77; PULSE 82; RESP 20; TEMP 37.1; O2SAT 98
[2023-08-07 22:15] VITALS: BMI 40.3
[2023-08-07 23:30] VITALS: BP 118/60; PULSE 86; RESP 21; TEMP 37.2; O2SAT 96
[2023-08-07 23:50] VITALS: RESP 22
[2023-08-08] VITALS (7 sets, daily range): BP systolic 117–129; BP diastolic 58–73; PULSE 73–89; RESP 16–22; TEMP 36–37.1; O2SAT 95–97
[2023-08-08] MEDS: Acetaminophen 325 MG TABLET 650 MG PO ×2 (04:11→16:51)
[2023-08-08] MEDS: Morphine Sulfate 4 MG/ML CARTRIDGE IVPUSH ×5 (04:12→21:38)
[2023-08-08 07:23] LABS: Hematocrit 38.4 % (42.0-52.0); Hemoglobin 12.6 g/dl (14.0-18.0); Mean Corpuscular HGB Conc 32.8 g/dl (31.0-36.0); Mean Corpuscular Volume 97.5 fL (80.0-98.0); Mean Platelet Volume 9.3 fL (9.4-12.4); Platelet Count 248 X10*3/uL (160-400); Red Blood Count 3.94 X10*6/uL (4.60-5.80); Red Cell Distribution Width 13.1 % (11.0-16.0); White Blood Count 10.9 X10*3/uL (4.8-10.8)
[2023-08-08 07:25] LABS: Prothrombin Time 12.5 SEC (11.1-13.3)
[2023-08-08 07:27] LABS: Anion Gap 9 (12-20); Blood Urea Nitrogen 11 mg/dL (9-16); Calcium 9.1 mg/dL (8.4-10.2); Carbon Dioxide 32 mmol/L (22-29); Chloride 101 mmol/L (96-108); Creatinine Clr Calc Pharmacy 159.6; Estimated Glomerular Filt Rate > 60; Glucose Random 107 mg/dL (60-115); PTT Heparin Drip 48.2 SEC (53-77.9); Potassium 4.4 mmol/L (3.3-5.1); Sodium 138 mmol/L (135-145)
[2023-08-08] MEDS: Heparin Sodium,Porcine/1/2NS 25,000 UNIT/250 ML IV.SOLN 19.21 UNIT IVCONT (08:06)
[2023-08-08] MEDS: Heparin Sodium,Porcine 5,000 UNIT/ML VIAL 5500 UNIT IVPUSH ×2 (08:08→21:37)
--- NOTE | 2023-08-08 09:28 | P.CNHO_ITS ---
Subjective - Subjective Chief complaint: Left leg pain, swelling Patient: new to practice Consult date: 08/08/23 Primary Care Provider: Unknown Physician Medical Summary: Diagnosis: Left leg DVT/pulmonary embolism 07/2023 HPI - Consult Narrative Reason for consult: DVT/pulmonary embolism Narrative: Stalin Garcia is a 33 year old male who has been admitted for symptomatic small bilateral pulmonary emboli and recently diagnosed left lower extremity DVT. He presented with shortness of breath and substernal chest pain couple of days after being diagnosed with left lower extremity DVT. He was started on Eliquis on 08/05/2023 for left lower extremity DVT. This seemed to have had spontaneously, he denies any injury to the left leg although he was helping someone move some furniture. He was seen in [facility] emergency department a week prior with symptoms of left hip pain that seemed like a pinched nerve. He was sent home on prednisone and gabapentin. His symptoms worsened and he began to experience pain and swelling in the left lower extremity, he then presented to [facility] on 08/05/2023. He quit smoking 3 years ago. He reports that his father and mother may have had thromboembolism. He is not aware of any known inherited thrombophilia. He was started on heparin and he reports improvement in symptoms of chest pain and shortness of breath, they have resolved completely. He still has some discomfort in his left leg. Review of Systems - Constitutional Reports as per HPI, Denies fatigue, Denies lack of energy, Denies malaise, Denies poor appetite, Denies weight loss - Cardiovascular Reports no additional cardiovascular complaints - Respiratory Reports no additional respiratory complaints, Denies cough - Gastrointestinal Reports no additional gastrointestinal complaints [facility] Medical History: Medical History (Last Reviewed 08/07/23 @ 22:36 by Lia Babb RN) DVT (deep venous thrombosis) Family History: Family History (Last Updated 08/07/23 @ 18:08 by FAROOQ Chanel) Other Blood clotting tendency Social History: Social History (Last Reviewed 08/07/23 @ 18:07 by FAROOQ Chanel) Living Situation History: Household Members: Family Housing: Apartment Do you presently have visiting nurse or other home services: No Alcohol History Details: 1. How often do you have a drink containing alcohol?: b. Monthly or less 2. How many drinks containing alcohol do you have on a typical day when you are drinking?: a. 1 or 2 3. How often do you have six or more drinks on one occasion?: a. Never AUDIT-C Alcohol total score: 1 Last drink: Days (ago) Currently Displaying Signs/Symptoms of Alcohol Withdrawal: No Tobacco History: Patient Tobacco Use Status: Former Tobacco user Tobacco use type: Cigarette Smoked in Last 30 Days: No Patient Interested in Nicotine Replacement: No Patient Given Instructions on How to Stop Smoking: No Substance Use History: Use of substances other than those prescribed or required for medical reasons : No Substance Use Type: Caffiene Currently Displaying Signs/Symptoms of Drug Intoxication Withdrawal: No Any prior treatment program specific to substance use: No Domestic Abuse History: Have you been hit, kicked, punched, or otherwise hurt by someone within the past year? If so, by whom?: No Do you feel safe in your current relationship?: No Is there a partner from a previous relationship who is making you feel unsafe now?: No Are you made to feel afraid or neglected: No Advance Directives: Advance Directives: No Advance Directives Information Provided: No Advance Directives on File: No Homicidal Assessment: Do you have thoughts of harming others: None Do you have a plan to hurt others: No Plan Nutrition Assessment: Recently lost weight without trying: No Eating poorly because of decreased appetite: No Nutrition Risks: No Nutritional Risk Poor oral hygiene: No Home Medications and Allergies Current Medications: Current Medications Acetaminophen (Acetaminophen 325 Mg Tablet) 650 mg PO Q6H PRN PRN Reason: Pain, Mild (Pain Scale 1-3) Last Admin: 08/08/23 04:11 Dose: 650 mg Albuterol Sulfate (Albuterol Sulfate 90 Mcg 8 Gm Inhaler) 2 puff INHALE Q4H PRN PRN Reason: wheezing Benzonatate (Benzonatate 100 Mg Capsule) 100 mg PO TID PRN PRN Reason: Cough Docusate Sodium (Docusate Sodium 100 Mg Capsule) 100 mg PO DAILY PRN PRN Reason: Constipation Heparin Sodium (Porcine) (Heparin Sodium,Porcine 5,000 Unit/Ml Vial) 5,500 unit 40 unit/kg (5500 unit) IVPUSH PROTOCOL BOLUS PRN; Protocol PRN Reason: 40 unit/kg - Heparin Protocol Last Admin: 08/08/23 08:08 Dose: 5,500 unit Heparin Sodium (Porcine) (Heparin Sodium,Porcine 5,000 Unit/Ml Vial) 10,000 unit IVPUSH PROTOCOL BOLUS PRN; Protocol PRN Reason: 80 unit/kg - Heparin Protocol Heparin Sodium/Sodium Chloride (Heparin Sodium,Porcine/1/2ns) 25,000 unit in 250 mls @ 0 mls/hr IVCONT .Q0M [facility]; Protocol Last Admin: 08/08/23 08:06 Dose: 14 units/kg/hr, 19.21 mls/hr Melatonin (Melatonin 3 Mg Tablet) 6 mg PO BEDTIME PRN PRN Reason: Insomnia Morphine Sulfate (Morphine Sulfate 4 Mg/Ml Cartridge) 4 mg IVPUSH Q4H PRN; Protocol PRN Reason: Pain, Severe (Pain Scale 7-10) Last Admin: 08/08/23 08:19 Dose: 4 mg Ondansetron HCl (Ondansetron Hcl 4 Mg/2 Ml Vial) 4 mg IVPUSH Q8H PRN PRN Reason: Nausea and Vomiting Sodium Chloride (0.9 % Sodium Chloride Flush 3 Ml Syringe) [facility] Last Admin: 08/08/23 08:10 Dose: Not Given Home Medications Medication Instructions Recorded Confirmed Type acetaminophen 325 mg tablet 650 mg PO Q6H PRN Headache 08/07/23 08/07/23 History (Tylenol) albuterol sulfate 90 mcg/actuation 2 puff inhalation Q4-6H PRN 08/07/23 08/07/23 History aerosol inhaler wheezing apixaban 5 mg (74 tabs) tablets in See Rx Instructions .Route .COMPLEX 08/07/23 08/07/23 History a dose pack (Eliquis DVT-PE Treat 30D Start) apixaban 5 mg tablet See Rx Instructions .Route .COMPLEX 08/07/23 08/07/23 History lidocaine 5 % topical patch 1 patch topical DAILY PRN mild pain 08/07/23 08/07/23 History Allergies Allergy/AdvReac Type Severity Reaction Status Date / Time No Known Allergies Allergy Verified 08/07/23 13:55 Physical Exam Vital signs: Vital Signs Temp 98.7 F 08/08/23 07:30 Pulse 78 08/08/23 07:30 Resp 20 08/08/23 07:30 BP 119/62 08/08/23 07:30 Pulse Ox 97 08/08/23 07:30 O2 Del Method Room Air 08/08/23 07:30 Intake & Output 08/07/23 08/08/23 08/08/23 18:59 06:59 18:59 Intake Total 123.264 / 123.264 126.736 / 126.736 Output Total 600 / 600 Balance -476.736 / -476.736 126.736 / 126.736 Urine Output (Average ml/kg/hr) 0.38 0.38 Intake: Intake, IV Amount 123.264 / 123.264 126.736 / 126.736 Heparin Sodium,Porcine/1/2NS 25 123.264 / 123.264 126.736 / 126.736 ,000 unit In 250 ml @ Per Protocol IVCONT .Q0M [facility] Rx#: [id number] Output: Output, Urine Amount 600 / 600 Other: Urine Urinal Urine Color Yellow Last Bowel Movement 08/07/23 08/04/23 Weight 137.2 kg 131 kg [place] Weight in Grams [id number] Weight 131 kg - Constitutional Present: no acute distress, obese - Routine HEENT Exam Eye: Present: normal appearance, PERRL - Routine Neck Exam Present: supple. Absent: lymphadenopathy - Routine Respiratory Exam Present: CTAB. Absent: accessory muscle use, wheezes - Routine Cardiovascular Exam Cardiovascular: Present: S1, S2 - Routine Abdominal Exam Present: normal bowel sounds - Routine Extremities Exam Present: calf tenderness Comments: Left lower extremity swollen Hem/Onc Consult Result - Labs CBC & Chem 7: 08/08/23 06:44 08/08/23 06:44 Labs: Short CBC 08/07/23 08/07/23 08/08/23 Range/Units 14:43 16:57 06:44 WBC 11.4 H 11.5 H 10.9 H (4.8-10.8) X10*3/uL Hgb 13.0 L 12.3 L 12.6 L (14.0-18.0) g/dl Hct 38.8 L 36.8 L 38.4 L (42.0-52.0) % Plt Count 225 210 248 (160-400) X10*3/uL BMP 08/07/23 08/08/23 14:43 06:44 Sodium 139 138 Potassium 4.1 4.4 Chloride 101 101 Carbon Dioxide 29 32 H BUN 10 11 Creatinine 0.81 0.90 Calcium 9.1 9.1 Liver Function 08/07/23 Range/Units 14:43 Total Bilirubin 0.8 (0.0-1.0) mg/dL AST 27 (5-37) U/L ALT 41 H (0-40) U/L Alkaline Phosphatase 59 (39-117) U/L Albumin 3.5 (3.5-5.0) g/dL Assessment and Plan Patient Active problem list reviewed?: Yes (1) Pulmonary embolism Status: Acute Assessment and plan: 1. This is a 33-year-old male risk factors of obesity presenting with spontaneous left lower extremity DVT and small bilateral pulmonary embolism in July 2023. Venous Doppler performed 08/05/2023 showed occlusive clot in the external iliac, common femoral vein, popliteal vein and greater saphenous vein in the left lower extremity. A CT angiogram performed 08/07/2023 showed small partially occlusive small emboli in secondary and tertiary branches of right and left pulmonary arteries bilaterally. No evidence of cardiac strain or septal bowing. Patient reports family history of thromboembolism although he does not know if anyone has been tested for inherited thrombophilia. At this time however, there is no role of thrombophilia testing. He is a candidate for long-term anticoagulation based on presentation. Patient did require heparin to control symptoms of pulmonary embolism. He is hemodynamically stable. There is no indication for thrombolytics therapy. He can be switched back to Eliquis 10 mg b.i.d. for a week followed by 5 mg b.i.d. when he is ready for discharge. I thank you for this referral. Follow-up in Hematology Clinic upon discharge. - Time Spent With Patient Time Spent with Patient (in minutes): 20
[2023-08-08] MEDS: oxyCODONE HCl Immed Release 5 MG TABLET PO ×2 (10:53→15:48)
--- NOTE | 2023-08-08 11:25 | P.CONGS_ITS ---
History of Present Illness Consult details Consult date: 08/08/23 Reason for consult: other (DVT with PE) Narrative: Very complex 33-year-old gentleman presents for evaluation regarding DVT with pulmonary embolism. He reports that he noted this all began about a week and half prior. He was helping a friend move and he tweaked his lower extremity. He thought it was more musculoskeletal in nature. It continue to progress and he had significant swelling of the left lower extremity. He then presented to [facility]. At that time they thought it was a pinched nerve and treated him with steroids and gabapentin. He noted no significant relief. He presented to our emergency room on the with an acute DVT. He was treated with Eliquis and subsequently discharged. Two days later he presents back with shortness of breath. He was at that time discovered to have a PE. Upon discussion with him he reports that he has a family history of this. He has both parents aunts and uncles I reports that he has grandparents with a clotting history. He is not exactly sure of what their exact history was. But he does believe that they did have a clotting history. In addition his left leg pain was to a degree that he could not ambulate. He now presents to us for vascular evaluation. Review of Systems 2 Constitutional: Constitutional: Reports as per HPI ENT: Reports system reviewed and no additional complaints, except as documented Cardiovascular: Cardiovascular: Denies chest pain, Denies chest pain at rest and Denies chest pain with activity Respiratory: Respiratory: Denies chest congestion and Denies cough Gastrointestinal: Gastrointestinal: Reports no additional gastrointestinal complaints Musculoskeletal: Musculoskeletal: Denies abnormal gait Integumentary/Breasts: Skin/Breast: Reports pruritus and Denies wounds Neurologic: Reports system reviewed and no additional complaints, except as documented and Denies abnormal gait Psychiatric: Psychiatric: Denies no additional psychiatric complaints [facility] Past Medical History Medical History DVT (deep venous thrombosis) Family History Family History (Updated 08/07/23 @ 18:08 by FAROOQ Chanel) Other Blood clotting tendency Social History Social History Household Members: Family Housing: Apartment Do you presently have visiting nurse or other home services: No Alcohol intake: current Alcohol intake frequency: holidays/special occasions only Patient Tobacco Use Status: Former Tobacco user Tobacco use type: Cigarette Smoked in Last 30 Days: No Patient Interested in Nicotine Replacement: No Patient Given Instructions on How to Stop Smoking: No Use of substances other than those prescribed or required for medical reasons: No Substance Use Type: Caffiene Currently Displaying Signs/Symptoms of Drug Intoxication Withdrawal: No Any prior treatment program specific to substance use: No Have you been hit, kicked, punched, or otherwise hurt by someone within the past year? If so, by whom?: No Do you feel safe in your current relationship?: No Is there a partner from a previous relationship who is making you feel unsafe now?: No Are you made to feel afraid or neglected: No Advance Directives: No Advance Directives Information Provided: No Advance Directives on File: No Do you have thoughts of harming others: None Do you have a plan to hurt others: No Plan Recently lost weight without trying: No Eating poorly because of decreased appetite: No Nutrition Risks: No Nutritional Risk Poor oral hygiene: No Meds Allergies Allergy/AdvReac Type Severity Reaction Status Date / Time No Known Allergies Allergy Verified 08/07/23 13:55 Active Medications: Current Medications Acetaminophen (Acetaminophen 325 Mg Tablet) 650 mg PO Q6H PRN PRN Reason: Pain, Mild (Pain Scale 1-3) Last Admin: 08/08/23 04:11 Dose: 650 mg Albuterol Sulfate (Albuterol Sulfate 90 Mcg 8 Gm Inhaler) 2 puff INHALE Q4H PRN PRN Reason: wheezing Benzonatate (Benzonatate 100 Mg Capsule) 100 mg PO TID PRN PRN Reason: Cough Docusate Sodium (Docusate Sodium 100 Mg Capsule) 100 mg PO DAILY PRN PRN Reason: Constipation Heparin Sodium (Porcine) (Heparin Sodium,Porcine 5,000 Unit/Ml Vial) 5,500 unit 40 unit/kg (5500 unit) IVPUSH PROTOCOL BOLUS PRN; Protocol PRN Reason: 40 unit/kg - Heparin Protocol Last Admin: 08/08/23 08:08 Dose: 5,500 unit Heparin Sodium (Porcine) (Heparin Sodium,Porcine 5,000 Unit/Ml Vial) 10,000 unit IVPUSH PROTOCOL BOLUS PRN; Protocol PRN Reason: 80 unit/kg - Heparin Protocol Heparin Sodium/Sodium Chloride (Heparin Sodium,Porcine/1/2ns) 25,000 unit in 250 mls @ 0 mls/hr IVCONT .Q0M [facility]; Protocol Last Admin: 08/08/23 08:06 Dose: 14 units/kg/hr, 19.21 mls/hr Melatonin (Melatonin 3 Mg Tablet) 6 mg PO BEDTIME PRN PRN Reason: Insomnia Morphine Sulfate (Morphine Sulfate 4 Mg/Ml Cartridge) 4 mg IVPUSH Q4H PRN; Protocol PRN Reason: Pain, Severe (Pain Scale 7-10) Last Admin: 08/08/23 08:19 Dose: 4 mg Ondansetron HCl (Ondansetron Hcl 4 Mg/2 Ml Vial) 4 mg IVPUSH Q8H PRN PRN Reason: Nausea and Vomiting Oxycodone HCl (Oxycodone Hcl Immed Release 5 Mg Tablet) 5 mg PO Q4H PRN PRN Reason: Pain, Mild (Pain Scale 1-3) Last Admin: 08/08/23 10:53 Dose: 5 mg Polyethylene Glycol (Polyethylene Glycol 3350 17 Gm Powd.Pack) 17 gm PO DAILY PRN PRN Reason: Constipation Sodium Chloride (0.9 % Sodium Chloride Flush 3 Ml Syringe) 3 ml IVFLUSH [facility] Last Admin: 08/08/23 08:10 Dose: Not Given Home Medications Medication Instructions Recorded Confirmed Last Taken Type acetaminophen 325 mg tablet 650 mg PO Q6H PRN Headache 08/07/23 08/07/23 Unknown History (Tylenol) albuterol sulfate 90 mcg/actuation 2 puff inhalation Q4-6H PRN 08/07/23 08/07/23 Unknown History aerosol inhaler wheezing apixaban 5 mg (74 tabs) tablets in See Rx Instructions .Route .COMPLEX 08/07/23 08/07/23 08/07/23 History a dose pack (Eliquis DVT-PE Treat 30D Start) apixaban 5 mg tablet See Rx Instructions .Route .COMPLEX 08/07/23 08/07/23 Unknown History lidocaine 5 % topical patch 1 patch topical DAILY PRN mild pain 08/07/23 08/07/23 Unknown History Physical Exam 2 Vital Signs: Vital Signs: Last Vital Signs Temp 98.7 F 08/08/23 07:30 Pulse 78 08/08/23 07:30 Resp 20 08/08/23 07:30 BP 119/62 08/08/23 07:30 Pulse Ox 97 08/08/23 07:30 O2 Del Method Room Air 08/08/23 07:30 BMI result Body Mass Index 40.3 Const: General: cooperative, healthy appearing and comfortable O rientation/consciousness: oriented to person, oriented to place and oriented to time Neck: Carotids: no bruits Chest: Chest palpation & inspection: normal inspection of the chest and normal palpation of entire chest wall Resp: Effort & Inspection: normal respiratory effort and able to speak in complete sentences Cardio: Rate: regular rate Heart sounds: S1 normal heart sound present and S2 normal heart sound present Peripheral pulses: Peripheral pulses 2+ throughout GI: Inspection: Yes normal to inspection Skin: Other: +2 edema, left leg General skin exam: dry skin Neuro: General: oriented to person, oriented to place and oriented to time Extrem: Right lower extremity: full ROM, normal capillary refill and edema Left lower extremity: full ROM, normal capillary refill and edema Psych: Mental Status: mental status grossly normal Results Labs 08/08/23 06:44 08/08/23 06:44 Labs: Abnormal lab results 08/07/23 08/07/23 08/07/23 Range/Units 14:43 16:57 23:43 WBC 11.4 H 11.5 H (4.8-10.8) X10*3/uL RBC 4.10 L 3.91 L (4.60-5.80) X10*6/uL Hgb 13.0 L 12.3 L (14.0-18.0) g/dl Hct 38.8 L 36.8 L (42.0-52.0) % MPV 8.7 L 8.8 L (9.4-12.4) fL Lymph % (Auto) 18.6 L (20-40) % Abs Immat Gran (auto) 0.05 H (0.00-0.03) X10*3/uL PT 15.0 H D 14.6 H (11.1-13.3) SEC INR 1.2 H 1.2 H (0.9-1.1) aPTT Heparin Protocol 34.2 L 81.0 H D (53-77.9) SEC Carbon Dioxide (22-29) mmol/L Anion Gap (12-20) ALT 41 H (0-40) U/L 08/08/23 Range/Units 06:44 WBC 10.9 H (4.8-10.8) X10*3/uL RBC 3.94 L (4.60-5.80) X10*6/uL Hgb 12.6 L (14.0-18.0) g/dl Hct 38.4 L (42.0-52.0) % MPV 9.3 L (9.4-12.4) fL Lymph % (Auto) (20-40) % Abs Immat Gran (auto) (0.00-0.03) X10*3/uL PT (11.1-13.3) SEC INR (0.9-1.1) aPTT Heparin Protocol 48.2 L D (53-77.9) SEC Carbon Dioxide 32 H (22-29) mmol/L Anion Gap 9 L (12-20) ALT (0-40) U/L Short CBC 08/07/23 08/07/23 08/08/23 Range/Units 14:43 16:57 06:44 WBC 11.4 H 11.5 H 10.9 H (4.8-10.8) X10*3/uL Hgb 13.0 L 12.3 L 12.6 L (14.0-18.0) g/dl Hct 38.8 L 36.8 L 38.4 L (42.0-52.0) % Plt Count 225 210 248 (160-400) X10*3/uL BMP 08/07/23 08/08/23 14:43 06:44 Sodium 139 138 Potassium 4.1 4.4 Chloride 101 101 Carbon Dioxide 29 32 H BUN 10 11 Creatinine 0.81 0.90 Calcium 9.1 9.1 Liver Function 08/07/23 Range/Units 14:43 Total Bilirubin 0.8 (0.0-1.0) mg/dL AST 27 (5-37) U/L ALT 41 H (0-40) U/L Alkaline Phosphatase 59 (39-117) U/L Albumin 3.5 (3.5-5.0) g/dL All other labs normal. Assessment and Plan (1) DVT (deep venous thrombosis): Qualifiers: Affected thrombotic vein of extremity: iliac Chronicity: acute DVT location: lower extremity Laterality: left Qualified Code(s): I82.422 - Acute embolism and thrombosis of left iliac vein Status: Acute Plan In short the patient has a significant left lower extremity DVT. The concern here was that he was on anticoagulation and subsequently developed a PE. Due to the amount of swelling in location of his left lower extremity clot I do believe he will benefit from left leg mechanical venous thrombectomy. Risks benefits complications of the procedure were discussed in detail with the patient. The patient agreed and would like to move port. In addition the patient did develop a PE while anticoagulated although it was unclear if he was totally therapeutic as he was only on 2 days of therapy. I will place a temporary filter as well. In short the patient will require left lower extremity mechanical venous thrombectomy and placement of IVC filter. We will schedule him for tomorrow. Thank you for allowing us to assist in his care. Procedures Date of Service Date of Service: 08/08/23
--- NOTE | 2023-08-08 11:47 | MHC.CM.PN ---
Pt is independent, he is staying with friends at this time, will be moving into a home in [place] soon. He does not have home health services, nor med. equip. He is able to arrange a ride home upon DC. HCP form given and requested a copy be on file. CM to follow and assist with DC plan.
--- NOTE | 2023-08-08 13:53 | HO.PM.IMPN ---
Subjective Subjective Date of Service: 08/08/23 Interval History: sob Review of Systems denies any chest pain or sob has leg pain and swelling simialr to yesterday no fever or chills Physical Exam Vital Signs: Vital Signs: Last Vital Signs Temp 97.6 F 08/08/23 11:32 Pulse 73 08/08/23 11:32 Resp 20 08/08/23 11:32 BP 123/65 08/08/23 11:32 Pulse Ox 95 08/08/23 11:32 O2 Del Method Room Air 08/08/23 11:32 BMI result Body Mass Index 40.3 Appearance: Alert.? Oriented X3.? not in distress.?. cvs: rrr, [id number] . res: clear to auscultation ,no rhonchii or wheezing abd: no rebound or guarding ,nt, bs present. ext pulses present , no cyanosis left leg-pain/swelling similar to yesterday. neuro: axo3 , nonfocal. Objective Data Active Medications Acetaminophen (Acetaminophen 325 Mg Tablet) 650 mg PO Q6H PRN PRN Reason: Pain, Mild (Pain Scale 1-3) Last Admin: 08/08/23 04:11 Dose: 650 mg Documented By: BERT Albuterol Sulfate (Albuterol Sulfate 90 Mcg 8 Gm Inhaler) 2 puff INHALE Q4H PRN PRN Reason: wheezing Benzonatate (Benzonatate 100 Mg Capsule) 100 mg PO TID PRN PRN Reason: Cough Docusate Sodium (Docusate Sodium 100 Mg Capsule) 100 mg PO DAILY PRN PRN Reason: Constipation Heparin Sodium (Porcine) (Heparin Sodium,Porcine 5,000 Unit/Ml Vial) 5,500 unit 40 unit/kg (5500 unit) IVPUSH PROTOCOL BOLUS PRN; Protocol PRN Reason: 40 unit/kg - Heparin Protocol Last Admin: 08/08/23 08:08 Dose: 5,500 unit Documented By: CAMILO Heparin Sodium (Porcine) (Heparin Sodium,Porcine 5,000 Unit/Ml Vial) 10,000 unit IVPUSH PROTOCOL BOLUS PRN; Protocol PRN Reason: 80 unit/kg - Heparin Protocol Heparin Sodium/Sodium Chloride (Heparin Sodium,Porcine/1/2ns) 25,000 unit in 250 mls @ 0 mls/hr IVCONT .Q0M [facility]; Protocol Last Admin: 08/08/23 08:06 Dose: 14 units/kg/hr, 19.21 mls/hr Documented By: CAMILO Co-signed By: GOKUL Sodium Chloride (Ns) 1,000 mls @ 100 mls/hr IVCONT .Q10H [facility] Melatonin (Melatonin 3 Mg Tablet) 6 mg PO BEDTIME PRN PRN Reason: Insomnia Morphine Sulfate (Morphine Sulfate 4 Mg/Ml Cartridge) 4 mg IVPUSH Q4H PRN; Protocol PRN Reason: Pain, Severe (Pain Scale 7-10) Last Admin: 08/08/23 08:19 Dose: 4 mg Documented By: CAMILO Ondansetron HCl (Ondansetron Hcl 4 Mg/2 Ml Vial) 4 mg IVPUSH Q8H PRN PRN Reason: Nausea and Vomiting Oxycodone HCl (Oxycodone Hcl Immed Release 5 Mg Tablet) 5 mg PO Q4H PRN PRN Reason: Pain, Mild (Pain Scale 1-3) Last Admin: 08/08/23 10:53 Dose: 5 mg Documented By: CAMILO Polyethylene Glycol (Polyethylene Glycol 3350 17 Gm Powd.Pack) 17 gm PO DAILY PRN PRN Reason: Constipation Sodium Chloride (0.9 % Sodium Chloride Flush 3 Ml Syringe) 3 ml IVFLUSH QSHIFT [facility] Last Admin: 08/08/23 08:10 Dose: Not Given Documented By: CAMILO Non-Admin Reason: IV Running Labs 08/08/23 06:44 08/08/23 06:44 Labs: Laboratory Results - last 24 hr 08/07/23 08/07/23 08/07/23 14:43 16:57 23:43 MCV 94.6 94.1 MCH 31.7 31.5 MCHC 33.5 33.4 RDW 13.0 13.1 Plt Count 225 210 MPV 8.7 L 8.8 L Immature Gran % (Auto) 0.4 Neut % (Auto) 69.8 Lymph % (Auto) 18.6 L [place] % (Auto) 8.9 Eos % (Auto) 1.7 Baso % (Auto) 0.6 Lymph # (Auto) 2.1 [place] # (Auto) 1.0 Eos # (Auto) 0.2 Baso # (Auto) 0.1 Abs Immat Gran (auto) 0.05 H Absolute Neuts (auto) 8.0 Absolute Nucleated RBC 0.000 0.000 Nucleated RBC % (auto) 0.0 0.0 PT 15.0 H D 14.6 H INR 1.2 H 1.2 H APTT 35.3 D aPTT Heparin Protocol 34.2 L 81.0 H D Anion Gap 13 Estim Creat Clear Calc 181.8 Estimated GFR > 60 Random Glucose 95 Calcium 9.1 Total Bilirubin 0.8 AST 27 ALT 41 H Alkaline Phosphatase 59 B-Natriuretic Peptide 15 Total Protein 7.2 Albumin 3.5 08/08/23 08/08/23 08/08/23 06:44 06:44 06:44 MCV 97.5 MCH 32.0 MCHC 32.8 RDW 13.1 Plt Count 248 MPV 9.3 L Immature Gran % (Auto) Neut % (Auto) Lymph % (Auto) [place] % (Auto) Eos % (Auto) Baso % (Auto) Lymph # (Auto) [place] # (Auto) Eos # (Auto) Baso # (Auto) Abs Immat Gran (auto) Absolute Neuts (auto) Absolute Nucleated RBC 0.000 Nucleated RBC % (auto) 0.0 PT Cancelled 12.5 INR Cancelled 1.0 APTT aPTT Heparin Protocol 48.2 L D Anion Gap 9 L Estim Creat Clear Calc 159.6 Estimated GFR > 60 Random Glucose 107 Calcium 9.1 Total Bilirubin AST ALT Alkaline Phosphatase B-Natriuretic Peptide Total Protein Albumin Assessment and Plan (1) Pulmonary embolism: Status: Acute (2) DVT (deep venous thrombosis): Status: Acute Plan 33-year-old male with recently diagnosed with DVT of left lower extremity and start Eliquis who presents to the ED with?non radiating substernal chest pain and intermittent shortness of breath. Pt will be admitted to the hospital for treatment and further evaluation of bilateral pulmonary emboli likely secondary to left lower extremity DVT. Bilateral pulmonary embolism Venous duplex of left lower extremity on 08/05/2023 positive for DVT in external iliac vein, common femoral vein, and greater saphenous vein Chest CTA today showed small partially occlusive small emboli in secondary and tertiary branches of the right and left pulmonary arteries bilaterally with no large central emboli or cardiac strain or septal bowing bnp and trop normal Unclear etiology: Active 33-year-old male, though has strong family history on both sides of blood clots Analgesics for pain management, hold Eliquis and was placed on heparin drip, moniter pt/ptt vascular eval noted-plan NPO after midnight in anticipation of possible vascular surgical procedure(left leg mechanical venous thrombectomy). hemtology eval noted- there is no role of thrombophilia testing. He is a candidate for long-term anticoagulation based on presentation. Full Code DVT Prophylaxis: On heparin drip ongoing hospitlisation need: hospitalization of at least two nights for treatment of?bilateral pulmonary emboli Likely secondary to left lower extremity DVT. Patient be treated with IV heparin drip and will receive specials consultation with possible vascular surgical intervention. Quality Stroke Does the patient have a stroke diagnosis?: No VTE Prior VTE?: No VTE Risk Level:: Medical - moderate - high VTE Device Contraindication: Treatment Not Indicated VTE Drug Contraindication: N/A - Med Ordered
[2023-08-08 15:30] LABS: PTT Heparin Drip 63.7 SEC (53-77.9)
[2023-08-08 21:19] LABS: PTT Heparin Drip 49.3 SEC (53-77.9)
[2023-08-08] MEDS: Heparin Sodium,Porcine/1/2NS 25,000 UNIT/250 ML IV.SOLN 21.95 UNIT IVCONT (21:34)
[2023-08-09] VITALS (13 sets, daily range): BP systolic 106–152; BP diastolic 62–86; PULSE 70–96; RESP 16–21; TEMP 36.2–37; O2SAT 94–97
[2023-08-09] MEDS: Morphine Sulfate 4 MG/ML CARTRIDGE IVPUSH ×5 (01:17→21:59)
[2023-08-09 03:46] LABS: PTT Heparin Drip 75.6 SEC (53-77.9)
[2023-08-09] MEDS: Heparin Sodium,Porcine/1/2NS 25,000 UNIT/250 ML IV.SOLN 21.95 UNIT IVCONT ×2 (06:37→21:05)
--- NOTE | 2023-08-09 08:55 | PC.NURSE ---
Vicky and Tammy PIRES RN aware through tiger text that patient was brought to radiology dept. quickly per request and that clipping order was not done in [facility].
[2023-08-09] MEDS: oxyCODONE HCl Immed Release 5 MG TABLET PO ×2 (12:38→21:04)
--- NOTE | 2023-08-09 12:58 | W.PM.OPN ---
Operative Note Operative Note Date of Service: 08/09/23 Narrative: Operative note by [facility] Preoperative diagnosis: Deep venous thrombosis of left lower extremity Postoperative diagnosis: Same Procedure: 1 Ultrasound-guided left popliteal vein access 2. Inferior vena cavogram 3. Percutaneous transluminal venous mechanical thrombectomy (20557) 4. Plasty left common iliac vein 5. Radiologic super visual and interpretation 6. Ultrasound guidance of ir right common femoral vein 7. Placement of inferior vena cava filter Surgeon:Jabari Umana M.D. Educational Psychology Teacher: None Anesthesia: Local with moderate conscious sedation. Total intra service moderate sedation time was 169 minutes. I monitored the patient's level of consciousness and physiologic status continuously throughout the procedure Specimen: None Drains: None Estimated blood loss: 50 mL Implant: Bard Densli filter Indications: 33-year-old gentleman with history of DVT re-presented with PE and significant swelling of the left lower extremity. He now presents for thrombectomy and IVC filter placement the decision was made to place filter as the PE developed after the patient was started on anticoagulation 2 days later. The patient has signed the informed consent after reviewing risks, complications, benefits, and alternatives previously discussed with the patient. The patient was given the opportunity to ask any additional questions or voice any concerns. All questions were answered to the patient's satisfaction. Procedure in detail: Patient was brought to the Angiography suite prior to which a time-out was called for patient identification and site verification. The patient was placed in a prone position. Bilateral popliteal fossas were prepped out. We first access the left popliteal vein under ultrasound guidance. We then placed a percutaneous 4 Marshallese sheath. We were then able to traverse the clot with a Glidewire Advantage 035 wire. We brought in a trail Blazer catheter to confirmed true lumen. At this time 8000 units of heparin was administered and during the procedure an additional 3000 units of heparin was administered. After 5 minutes of circulation time we then dilated up the tract. The clot triever over the wire system was then brought into position. We placed the clot triever sheath and exposed the self expanding Nitinol mesh funnel to facilitate clot removal for large-bore side port rapid aspiration. Once this was accomplished we then advanced over the wire the clot triever catheter with the coring element and braided collection bag. This was brought into the inferior vena cava up past this occlusion and extracted back. We did 4 sequential passes. The main angle of the catheter was placed at the 12:00 o'clock, 03:00 o'clock, 06:00 o'clock, and 09:00 o'clock positions was the larger catheter. We then used the bold in a similar fashion through the external iliac and common femoral veins. After each subsequent pass the clot was removed and it was flushed clear and we then brought it in again through this area. We did notice some residual stenosis in the left common femoral and external iliac vein. This was then plasty did with a 10 x 40 balloon. Final completion venogram demonstrated an excellent result. We subsequently removed catheter wire in sheath. Direct pressure was held for 10 minutes. Sterile dressing was applied. We then placed the patient in a supine position. Under ultrasound guidance right common femoral vein was punctured with micro puncture needle and wire. Subsequently a precision 5 Marshallese sheath was then placed. [employer] wire was advanced to the level of the vena cava. Vena cavogram was then undertaken through the 5 Marshallese sheath. This was a baseline study to define the variant anatomy, caval size, location and number of renal veins, and to evaluate for ileo caval thrombus. Under direct fluoroscopic guidance we exchanged out the 5 Marshallese sheath for the Bard Any sheath. We brought the filter into position. This was then subsequently deployed. The inner cannula was then removed. Through the sheath a hand injection was performed to assess filter position. Once this was accomplished the sheath was then removed, and hemostasis was achieved with 10 minutes of direct compression. No immediate complications occurred and the patient was returned to the recovery suite with no complications Interpretation of films: 1. Ultrasound demonstrates appropriate popliteal vein puncture. 2. Vena cavogram demonstrated thrombus in the distal vena cava along the end attire iliofemoral system down into the popliteal vein. 3. Completion vena cavogram demonstrated resolution of clot. 4. Ultrasound demonstrates appropriate femoral vein puncture. Image of which was saved. 5. There was no ileal caval thrombus noted 6. There are single renal veins bilaterally and the IVC is normal in caliber. There is no aberrant anatomy. 7. The filter was deployed appropriately and position below the lowest renal vein. Conclusion: 1. Successful mechanical clot removal and filter placement. 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 Anticoagulation status: Resume heparin drip in for hours. Tomorrow may start oral anticoagulation. This note is constructed using voice recognition software. While every effort has been made to ensure accuracy, hat and cap opener errors may have been included. Thank you for allowing me to participate in the care of your patient. Yours sincerely, Jabari Umana MD, FACS, R.P.V.I.
[2023-08-09 13:49] LABS: PTT Heparin Drip 44.2 SEC (53-77.9)
--- NOTE | 2023-08-09 14:43 | HO.PM.IMPN ---
Subjective Subjective Date of Service: 08/09/23 Interval History: f/u on dvt, pe s/p thrombectomy today Physical Exam Vital Signs: Vital Signs: Last Vital Signs Temp 97.1 F 08/09/23 13:49 Pulse 83 08/09/23 13:49 Resp 20 08/09/23 13:49 BP 128/64 08/09/23 13:49 Pulse Ox 97 08/09/23 13:49 O2 Del Method Room Air 08/09/23 13:49 O2 Flow Rate 97 08/08/23 15:39 BMI result Body Mass Index 40.3 Const: Other: General: AO X 3, no acute distress Resp: CTA bilateral CVS: S1,S2,RRR GI: +BS, NT, no distention Skin: No rash Neuro: motor grossly intact MSK: left leg is swollen Psych: appropriate affect Objective Data Active Medications Acetaminophen (Acetaminophen 325 Mg Tablet) 650 mg PO Q6H PRN PRN Reason: Pain, Mild (Pain Scale 1-3) Last Admin: 08/08/23 16:51 Dose: 650 mg Documented By: CAMILO Acetaminophen (Acetaminophen 325 Mg Tablet) 650 mg PO Q6H PRN PRN Reason: Pain, Mild (Pain Scale 1-3) Albuterol Sulfate (Albuterol Sulfate 90 Mcg 8 Gm Inhaler) 2 puff INHALE Q4H PRN PRN Reason: wheezing Benzonatate (Benzonatate 100 Mg Capsule) 100 mg PO TID PRN PRN Reason: Cough Docusate Sodium (Docusate Sodium 100 Mg Capsule) 100 mg PO DAILY PRN PRN Reason: Constipation Heparin Sodium (Porcine) (Heparin Sodium,Porcine 5,000 Unit/Ml Vial) 5,500 unit 40 unit/kg (5500 unit) IVPUSH PROTOCOL BOLUS PRN; Protocol PRN Reason: 40 unit/kg - Heparin Protocol Last Admin: 08/08/23 21:37 Dose: 5,500 unit Documented By: EMI Heparin Sodium (Porcine) (Heparin Sodium,Porcine 5,000 Unit/Ml Vial) 10,000 unit IVPUSH PROTOCOL BOLUS PRN; Protocol PRN Reason: 80 unit/kg - Heparin Protocol Heparin Sodium/Sodium Chloride (Heparin Sodium,Porcine/1/2ns) 25,000 unit in 250 mls @ 0 mls/hr IVCONT .Q0M [facility]; Protocol Last Admin: 08/09/23 06:37 Dose: 16 units/kg/hr, 21.95 mls/hr Documented By: EMI Co-signed By: NICOLAS Sodium Chloride (Ns) 1,000 mls @ 100 mls/hr IVCONT .Q10H [facility] Last Admin: 08/09/23 05:07 Dose: Not Given Documented By: EMI Non-Admin Reason: preop Melatonin (Melatonin 3 Mg Tablet) 6 mg PO BEDTIME PRN PRN Reason: Insomnia Morphine Sulfate (Morphine Sulfate 4 Mg/Ml Cartridge) 4 mg IVPUSH Q4H PRN; Protocol PRN Reason: Pain, Severe (Pain Scale 7-10) Last Admin: 08/09/23 05:06 Dose: 4 mg Documented By: EMI Morphine Sulfate (Morphine Sulfate 4 Mg/Ml Cartridge) 4 mg IVPUSH Q2H PRN; Protocol PRN Reason: Pain, Severe (Pain Scale 7-10) Last Admin: 08/09/23 12:39 Dose: 4 mg Documented By: DONIS Ondansetron HCl (Ondansetron Hcl 4 Mg/2 Ml Vial) 4 mg IVPUSH Q8H PRN PRN Reason: Nausea and Vomiting Oxycodone HCl (Oxycodone Hcl Immed Release 5 Mg Tablet) 5 mg PO Q4H PRN PRN Reason: Pain, Mild (Pain Scale 1-3) Last Admin: 08/08/23 15:48 Dose: 5 mg Documented By: CAMILO Oxycodone HCl (Oxycodone Hcl Immed Release 5 Mg Tablet) 5 mg PO Q4H PRN PRN Reason: Pain, Moderate(Pain Scale 4-6) Last Admin: 08/09/23 12:38 Dose: 5 mg Documented By: DONIS Polyethylene Glycol (Polyethylene Glycol 3350 17 Gm Powd.Pack) 17 gm PO DAILY PRN PRN Reason: Constipation Sodium Chloride (0.9 % Sodium Chloride Flush 3 Ml Syringe) 3 ml IVFLUSH QSHIFT [facility] Last Admin: 08/09/23 08:40 Dose: Not Given Documented By: RACHNA Non-Admin Reason: Off Unit: Surgery Labs 08/08/23 06:44 08/08/23 06:44 Labs: Laboratory Results - last 24 hr 08/08/23 08/08/23 08/09/23 14:57 20:59 03:26 aPTT Heparin Protocol 63.7 D 49.3 L D 75.6 D 08/09/23 13:26 aPTT Heparin Protocol 44.2 L D Assessment and Plan (1) Pulmonary embolism: Status: Acute (2) DVT (deep venous thrombosis): Status: Acute Plan 33-year-old male with recently diagnosed with DVT of left lower extremity and start Eliquis who presents to the ED with?non radiating substernal chest pain and intermittent shortness of breath. Pt will be admitted to the hospital for treatment and further evaluation of bilateral pulmonary emboli likely secondary to left lower extremity DVT. Bilateral pulmonary embolism Left lower ext DVT in external iliac vein, common femoral vein, and greater saphenous vein -s/p IVC filter and thrombectomy by Dr. Umana 08/09 -continue anticoagulation with heparin now and will transition to eliquis tomorrow hematology recommends indefinite anticoagulation and no need for thrombophilia work Full Code DVT Prophylaxis: On heparin drip need for inpt: IV heparin for dvt, pe Quality Stroke Does the patient have a stroke diagnosis?: No VTE Prior VTE?: No VTE Risk Level:: Medical - moderate - high VTE Device Contraindication: Treatment Not Indicated VTE Drug Contraindication: N/A - Med Ordered
--- NOTE | 2023-08-09 15:35 | MHC.CM.PN ---
Pt completed HCP, copies given to him, and added to chart.
[2023-08-09 20:34] LABS: PTT Heparin Drip 65.9 SEC (53-77.9)
[2023-08-10 02:16] LABS: PTT Heparin Drip 71.8 SEC (53-77.9)
[2023-08-10 03:04] VITALS: BP 124/64; PULSE 64; RESP 18; TEMP 36.8; O2SAT 96
[2023-08-10 08:00] VITALS: BP 106/64; PULSE 83; RESP 19; TEMP 36.8; O2SAT 95
[2023-08-10 09:41] LABS: PTT Heparin Drip 32.8 SEC (53-77.9)
--- NOTE | 2023-08-10 09:50 | PM.DS ---
DS: Providers Provider Date of Service: 08/10/23 Date of admission: 08/07/23 16:58 Primary care physician: Marin Quijano Consults: 08/07/23 17:08 Consult to Hematology / Oncology Routine Consulting Provider: Tsih Jones Reason for consultation: Active 33M w/ DVT & PE, family hx of blood clots on both sides Consult to Vascular Surgery Routine Consulting Provider: [facility] Reason for consultation: DVT left leg DS: Diagnosis Discharge Diagnosis (1) Pulmonary embolism: Status: Acute (2) DVT (deep venous thrombosis): Status: Acute DS: Summary Hospital Course Hospital Course: Chief Complaint: Shortness of breath Pt is a 33-year-old male with recently diagnosed with DVT of left lower extremity and start Eliquis who presents to the ED with?non radiating substernal chest pain and intermittent shortness of breath. Patient states symptoms began last night and continued this morning. SOB worse with exertion and better at rest. Chest pain subsided right before being admitted to the ED but SOB has persisted. Patient is also complaining of left lower extremity swelling and pain from his knee to his groin. States symptoms began last week when he felt pain in his left hip/lower back. Patient thought he had pulled muscle after working outside in the yard and moving a lot of brush. Initially presented to [facility] where he was diagnosed with a pinched sciatic nerve and bulging disc and sent home on prednisone and gabapentin. Symptoms worsened earlier this week patient began to experience swelling and pain in his left lower extremity. Patient then presented to the ED here where ultrasound of his left lower extremity was positive for DVT. Patient was started on Eliquis and sent home. Patient is a previous smoker who quit 2-3 years ago. States this is his 1st time having any issues with blood clots, though notes he has a significant family history of blood clots, saying his mother, father, and multiple aunts and uncles on both sides have experienced problems with clotting. In the ED pt was Labs were significant for slight leukocytosis of 11.4, H&H 13.0/38.8, otherwise grossly unremarkable. Electrolytes WNL. Renal and hepatic function WNL. Troponins, BNP negative. Venous duplex of left lower extremity 2 days prior on 08/05/2023 positive for DVT in the external iliac vein, common femoral vein, and greater saphenous vein. CTA showed small partially occlusive small emboli in secondary and tertiary branches of the right and left pulmonary arteries bilaterally, with no large central emboli, evidence of cardiac strain, or septal bowing noted.?EKG demonstrated normal sinus rhythm with no evidence of ST elevations or depressions. Pt was treated with ondansetron, morphine, and started on a heparin drip after speaking with vascular surgery. Pt will be admitted to the hospital for treatment and further evaluation of bilateral pulmonary emboli likely secondary to left lower extremity DVT. Hospital course: Patient was seen in ED on 08/05 and diagnosed with left leg DVT and was started on Eliquis; he returned to the ED 2 days later with intermittent shortness of breath and some chest pain. DVT study of the left leg was again done and showed?an acute appearing thrombus extending from the leftexternal iliac vein to the popliteal vein. CTA of the chest showed?small, partially occlusive emboli in secondary and tertiary branches of the right and left pulmonary arteries bilaterally. The patient was started on IV heparin and?was seen by Hematoligst with a recommendation to continue Eliquis 10 mg bid x 1 week, followed by 5 mg bid, given a strong family history. No further testing was advised, and should be on long-term anticoagulation.?A Vascular surgeon also evaluated him and underwent a Thrombectomy of the left lower extremity, and an IVC filter was inserted on 08/09 Time Attestation Discharge coordination time: Greater than 30 minutes Quality: Safe Use of Opioids Does Pt have an Active Cancer Diagnosis on the Problem List?: No Quality: Stroke Does the patient have a stroke diagnosis?: No Physical Exam Vital Signs: Vital Signs: Last Vital Signs Temp 98.2 F 08/10/23 08:00 Pulse 83 08/10/23 08:00 Resp 19 08/10/23 08:00 BP 106/64 08/10/23 08:00 Pulse Ox 95 08/10/23 08:00 O2 Del Method Room Air 08/10/23 08:00 O2 Flow Rate 97 08/08/23 15:39 BMI result Body Mass Index 40.3 DS: Data Data Completed and Pending Labs on day of discharge: Laboratory Results - last 24 hr 08/09/23 08/09/23 08/10/23 13:26 20:01 01:58 aPTT Heparin Protocol 44.2 L D 65.9 D 71.8 08/10/23 08:41 aPTT Heparin Protocol 32.8 L D Discharge Plan Discharge Anticipated Discharge Date/Time: 08/10/23 09:48 Patient Disposition: Home, Self-Care Discharge Diagnosis: Pulmonary embolism, DVT Referrals: Marin Quijano [Other] - 1 Week Discharge Medications: Continued lidocaine 5 % adhesive patch,medicated 1 patch topical DAILY PRN (Reason: mild pain) albuterol sulfate 90 mcg/actuation HFA aerosol inhaler 2 puff inhalation Q4-6H PRN (Reason: wheezing) apixaban 5 mg Tablet See Rx Instructions .ROUTE .COMPLEX Rx Instructions: 5 mg orally BID; START DATE: 08/12/23 Eliquis DVT-PE Treat 30D Start 5 mg (74 tabs) tablets,dose pack See Rx Instructions .ROUTE .COMPLEX Rx Instructions: 10 mg orally BID; END DATE: 08/11/23 acetaminophen [Tylenol] 325 mg Tablet 650 mg PO Q6H PRN (Reason: Headache) Discharge Orders: Discharge Order (Routine); Ordered 08/10/23 Ordered By: Emigdio Villa Diet: Advance to usual diet Activity on Discharge: As tolerated Stand Alone Forms: Patient Portal Discharge page Care Plan Goals: recovery from pulmonary embolism and DVT Health Concerns: pulmonary embolism DVT Plan of Treatment: take Eliquis as directed ( 10 mg twice daily for 7 days then 5 mg twice daily thereafter. Follow-up with your doctor within a week call for appointment. Assessment: See above
--- NOTE | 2023-08-10 10:24 | MHC.CM.PN ---
Pt is medically cleared for DC, he will go home via private transport, no services needed.
--- NOTE | 2023-08-10 10:25 | HO.VASCPN ---
Subjective Subjective Date of Service: 08/10/23 Patient reports: no new complaints and feels better Interval history: Pleasant 33-year-old gentleman underwent thrombectomy yesterday for left lower extremity DVT. Appears to be doing extremely well. Reports that the leg feels significantly better. Physical Exam Vital Signs: Vital Signs: Last Vital Signs Temp 98.2 F 08/10/23 08:00 Pulse 83 08/10/23 08:00 Resp 19 08/10/23 08:00 BP 106/64 08/10/23 08:00 Pulse Ox 95 08/10/23 08:00 O2 Del Method Room Air 08/10/23 08:00 O2 Flow Rate 97 08/08/23 15:39 BMI result Body Mass Index 40.3 Const: General: cooperative, healthy appearing and no acute distress Orientation/consciousness: oriented to person, oriented to place and oriented to time HEENT: Head: Yes normal to inspection Neck: Carotids: no bruits Chest: Chest palpation & inspection: normal inspection of the chest Resp: Effort & Inspection: normal respiratory effort and able to speak in complete sentences Auscultation: clear to auscultation bilaterally Cardio: Rate: regular rate Heart sounds: S1 normal heart sound present and S2 normal heart sound present GI: Inspection: Yes normal to inspection Skin: General skin exam: no rashes or lesions noted Wounds: no wounds Neuro: General: oriented to person, oriented to place, oriented to time and CN's II-XI intact bilaterally Extrem: Other: Left leg decreased edema +1 now General: Yes normal to inspection, Yes full ROM and Yes no clubbing, cyanosis or edema Psych: Appearance: grossly normal and well kempt Speech and movement: Normal speech and movement present Affect: normal affect Progress Note: A&P Assessment and plan (1) May-Thurner syndrome: Status: Acute Assessment and Plan: Patient does have evidence on angiogram of May-Thurner syndrome. We can assess this as an outpatient. (2) DVT (deep venous thrombosis): Status: Acute Assessment and Plan: Transition back to [facility]. Stable from my perspective for discharge. Can see me as an outpatient in approximately 2 weeks time. Thank you for allowing us to assist in his care. (3) Pulmonary embolism: Status: Acute Time Spent With Patient Time: Total time managing care of this patient today ____ minutes. Procedures Date of Service Date of Service: 08/10/23 Quality Stroke Does the patient have a stroke diagnosis?: No VTE Prior VTE?: No VTE Risk Level:: Medical - moderate - high VTE Device Contraindication: Treatment Not Indicated VTE Drug Contraindication: N/A - Med Ordered
[2023-08-10 10:38] VITALS: RESP 18
[2023-08-10] MEDS: Apixaban 5 MG TABLET 10 MG PO (10:38)
[2023-08-10] MEDS: Morphine Sulfate 4 MG/ML CARTRIDGE IVPUSH (10:38)
== END 2023-08-10 13:41 | disposition home or self-care (01) | DRG 169 ==
LOC: HO.ED 16:41 → HO.EDOVER 17:18 → HO.IMC 19:32
PROVIDERS: Internal Medicine; Physician Assistant; Student in an Organized Health Care Education/Training Program; Surgery Vascular Surgery; Admitting Provider Student in an Organized Health Care Education/Training Program; Emergency Provider Emergency Medicine; PCP Internal Medicine; Visit Provider Internal Medicine
PROC: 04CD3ZZ Extirpation of Matter from Left Common Iliac Artery, Percutaneous Approach (ICD-10-PCS; principal; 2023-08-09 08:00)
DX: I82.422 Acute embolism and thrombosis of left iliac vein (principal); I26.94 Multiple subsegmental thrombotic pulmonary emboli without acute cor pulmonale; I82.412 Acute embolism and thrombosis of left femoral vein; D72.0 Genetic anomalies of leukocytes; I82.811 Embolism and thrombosis of superficial veins of right lower extremity; Z87.891 Personal history of nicotine dependence; Z79.01 Long term (current) use of anticoagulants; Z79.899 Other long term (current) drug therapy
CPT/HCPCS: 36415; 37187; 37191; 71275; 80048; 80053; 83880; 84484; 85025; 85027; 85610; 85730; 93005; 93971; 99152; 99153; 99285; A4364; C1725; C1757; C1769; C1880; C1887; J1644; J2270; J2405; Q9967

== ENCOUNTER → 2023-08-07 16:58 | Outpatient (BNV) | payer OTHER, SELFPAY | PROVIDERS: Admitting Provider Student in an Organized Health Care Education/Training Program; Emergency Provider Emergency Medicine; Visit Provider Internal Medicine | DX: I82.422 Acute embolism and thrombosis of left iliac vein (principal); I26.94 Multiple subsegmental thrombotic pulmonary emboli without acute cor pulmonale | CPT/HCPCS: 99222 ==

== ENCOUNTER → 2023-08-07 16:58 | Outpatient (BNV) | payer OTHER, SELFPAY | PROVIDERS: Admitting Provider Student in an Organized Health Care Education/Training Program; Emergency Provider Emergency Medicine; Visit Provider Student in an Organized Health Care Education/Training Program | DX: I26.94 Multiple subsegmental thrombotic pulmonary emboli without acute cor pulmonale (principal); I82.422 Acute embolism and thrombosis of left iliac vein | CPT/HCPCS: 99223; 99232; 99239 ==

== ENCOUNTER → 2023-08-07 16:58 | Outpatient (BNV) | payer OTHER, SELFPAY | PROVIDERS: Admitting Provider Student in an Organized Health Care Education/Training Program; Emergency Provider Emergency Medicine; Visit Provider Surgery Vascular Surgery | DX: I82.422 Acute embolism and thrombosis of left iliac vein (principal) | CPT/HCPCS: 37187; 37191; 37248; 99222; 99232 ==

== ENCOUNTER 2023-08-18 14:21 | Outpatient (AMB) | payer OTHER, SELFPAY ==
--- NOTE | 2023-08-18 14:21 | MHC.OFFVIS ---
Intake Intake Visit Reasons: Post op thrombectomy 08/09/2023 Intake Note: 2 week follow up Left LE thrombectomy 08/09/23 follow up. Question of May-Thurner Syndrome. Pt states he is ambulating better, swelling goes up and down. Pt states when he is on his feet his leg swells up and causes pain, even for a short time. Accompanied by: Self / Same As Patient Allergies No Known Allergies Allergy (Verified 08/18/23 14:27) HPI Post op thrombectomy 08/09/2023 HPI Details Very pleasant 33-year-old gentleman presents for follow-up regarding acute lower extremity DVT. He had presented to the hospital and subsequently underwent mechanical venous thrombectomy on 08/09/2023 along with IVC filter placement. The concern was that he did develop a PE after he was started on Eliquis. He has done extremely well postprocedure and notes significant improvement on his left leg even though it is still quite swollen. He now presents for routine postprocedure follow-up [facility] Medical History DVT (deep venous thrombosis) Family History Other Blood clotting tendency Social History Household Members: Family Housing: Apartment Do you presently have visiting nurse or other home services: No Alcohol intake: current Alcohol intake frequency: holidays/special occasions only Patient Tobacco Use Status: Former Tobacco user Tobacco use type: Cigarette Substance Use Type: Caffiene service: No Review of Systems Const Reports as per HPI ENT Reports no additional complaints Card Denies chest pain, Denies chest pain at rest and Denies chest pain with activity Resp Denies chest congestion and Denies cough GI Reports no additional complaints Musc Details: pain over varicosities, aching of lower extremities, swelling, cramping, heaviness and tiredness, itching Denies abnormal gait Skin/Breast Reports pruritus and Denies wounds Neuro Reports no additional complaints and Denies abnormal gait Psych Denies no additional complaints Physical Exam Const General: cooperative, healthy appearing and comfortable Orientation/consciousness: oriented to person, oriented to place and oriented to time Neck Carotids: no bruits Chest Chest palpation & inspection: normal inspection of the chest and normal palpation of entire chest wall Resp Effort & Inspection: normal respiratory effort and able to speak in complete sentences Cardio Rate: regular rate Heart sounds: S1 normal heart sound present and S2 normal heart sound present Peripheral pulses: Peripheral pulses 2+ throughout GI Inspection: Yes normal to inspection Skin Other: +2 edema, left leg General skin exam: dry skin Neuro General: oriented to person, oriented to place and oriented to time Extrem Right lower extremity: full ROM, normal capillary refill and edema Left lower extremity: full ROM, normal capillary refill and edema Psych Mental Status: mental status grossly normal Assessment & Plan Assessment & Plan (1) DVT (deep venous thrombosis): Code(s): I82.409 - Acute embolism and thrombosis of unspecified deep veins of unspecified lower extremity Qualifiers: Affected thrombotic vein of extremity: iliac Chronicity: acute DVT location: lower extremity Laterality: left Qualified Code(s): I82.422 - Acute embolism and thrombosis of left iliac vein Plan: Appears to be doing well in terms of his DVT. We did discuss the importance of staying on anticoagulation. He will need to be assessed better for his May-Thurner syndrome. (2) May-Thurner syndrome: Code(s): I87.1 - Compression of vein Plan: Will obtain CT angiogram abdomen pelvis to better assess May-Thurner syndrome. Should that be noted may require venous stenting. Thank you for allowing us to assist in his care. Should there be any questions or concerns please do not hesitate to contact us. Orders: Orders CT angio abdomen pelvis 1 Week I87.1 - Compression of vein Coding Level of Care Code Est Pt Level 4 (89752) Diagnoses Acute deep vein thrombosis (DVT) of iliac vein of left lower extremity I82.422 Affected thrombotic vein of extremity: iliac Chronicity: acute DVT location: lower extremity Laterality: left May-Thurner syndrome I87.1
== END 2023-08-18 14:44 | disposition home or self-care (01) ==
PROVIDERS: PCP Internal Medicine; Visit Provider Surgery Vascular Surgery
DX: I82.422 Acute embolism and thrombosis of left iliac vein (principal); I87.1 Compression of vein
CPT/HCPCS: 99213

== ENCOUNTER → 2023-08-18 14:21 | Outpatient (BNVA) | payer OTHER, SELFPAY | PROVIDERS: PCP Internal Medicine; Visit Provider Surgery Vascular Surgery | DX: Z48.812 Encounter for surgical aftercare following surgery on the circulatory system (principal); I82.422 Acute embolism and thrombosis of left iliac vein; I87.1 Compression of vein | CPT/HCPCS: 99212 ==

== ENCOUNTER 2023-08-24 15:31 | Outpatient (REF) | payer OTHER, SELFPAY ==
--- NOTE | ~2023-08-24 | CT_ITS ---
EXAMINATION: CT ANGIOGRAM ABDOMEN AND PELVIS CLINICAL INFORMATION: Compression of vein. COMPARISON: Venous ultrasound 08/07/2023. TECHNIQUE: Multiple axial images were obtained through the abdomen and pelvis following the administration of 100 mL of Omnipaque 350 intravenous contrast. 3D POSTPROCESSIN-D MIP images were processed from the initial data set by the ocular care technologist on the technologist workstation under concurrent physician supervision. This CT examination was performed using dose optimization techniques as appropriate, variously including the following: *Automated exposure control *Adjustment of mA and/or kV according to patient size (this includes techniques or standardized protocols for targeted exams where dose is matched to indication/reason for exam; i.e. extremities or head) *Use of iterative reconstruction technique DLP: 1211 mGy-cm FINDINGS: Abdominal aorta is normal in caliber. The iliac arteries are widely patent. No visible atherosclerotic disease. The celiac, SMA, ADRIAN are patent. Single right and 2 left renal arteries are patent. Nephrograms are symmetric. There is thrombosis of the left common iliac, internal iliac, external iliac, common femoral and visualized femoral and profunda femoral veins. There is significant narrowing of the left common iliac vein as it passes deep to the right iliac artery consistent with May Thurner anatomy. The IVC and right iliac venous system appear patent. There is an IVC filter in the lower infrarenal IVC. The liver, gallbladder, pancreas, and spleen appear normal on arterial and venous phase imaging. No adrenal mass. Symmetric nephrograms. No suspicious mass. No adenopathy. The bladder is decompressed. The small and large bowel are normal in caliber. No inflammatory changes. Bilateral fat-containing inguinal hernias. Degenerative changes in the spine. CT/CT angio abdomen pelvis IMPRESSION: Compression of the left common iliac vein by the overlying right common iliac artery consistent with May Thurner type anatomy. Thrombosis of the left iliac veins, common femoral vein, and visualized femoral and profunda femoral veins appears similar to recent ultrasound. Patent right iliac venous system and patent inferior vena cava. Infrarenal IVC filter. Fleischner guidelines were followed.
[2023-08-24] MEDS: iohexoL 350 MG/ML 100 ML INFUS..BTL IV (16:07)
== END 2023-08-24 15:32 | disposition home or self-care (01) ==
LOC: HO.CT 15:31
PROVIDERS: PCP Internal Medicine; Visit Provider Surgery Vascular Surgery
DX: I87.1 Compression of vein (principal)
CPT/HCPCS: 74174; Q9967

== ENCOUNTER 2023-08-30 12:57 | Outpatient (AMB) | payer OTHER, SELFPAY ==
--- NOTE | 2023-08-30 12:59 | MHC.OFFVIS ---
Intake Intake Visit Reasons: Follow up CTA Abd/pelvis 08/24/2023 Intake Note: follow up CTA ABD/Pelvis 08/24/23 to access for May-thurner syndrome. Left LE swelling has decreased. Accompanied by: Self / Same As Patient Allergies No Known Allergies Allergy (Verified 08/30/23 13:04) HPI Follow up CTA Abd/pelvis 08/24/2023 HPI Details Very pleasant 33-year-old gentleman who presented originally is in early July for venous thrombectomy in DVT along with IVC filter placement presents for follow-up with CT venogram. Of note he had an a PE and is being maintained with Eliquis. He now presents for CT angiogram follow-up [facility] Medical History DVT (deep venous thrombosis) Family History Other Blood clotting tendency Social History Household Members: Family Housing: Apartment Do you presently have visiting nurse or other home services: No Alcohol intake: current Alcohol intake frequency: holidays/special occasions only Patient Tobacco Use Status: Former Tobacco user Tobacco use type: Cigarette Substance Use Type: Caffiene service: No Review of Systems Const Reports as per HPI ENT Reports no additional complaints Card Denies chest pain, Denies chest pain at rest and Denies chest pain with activity Resp Denies chest congestion and Denies cough GI Reports no additional complaints Musc Details: pain over varicosities, aching of lower extremities, swelling, cramping, heaviness and tiredness, itching Denies abnormal gait Skin/Breast Reports pruritus and Denies wounds Neuro Reports no additional complaints and Denies abnormal gait Psych Denies no additional complaints Physical Exam Const General: cooperative, healthy appearing and comfortable Orientation/consciousness: oriented to person, oriented to place and oriented to time Neck Carotids: no bruits Chest Chest palpation & inspection: normal inspection of the chest and normal palpation of entire chest wall Resp Effort & Inspection: normal respiratory effort and able to speak in complete sentences Cardio Rate: regular rate Heart sounds: S1 normal heart sound present and S2 normal heart sound present Peripheral pulses: Peripheral pulses 2+ throughout GI Inspection: Yes normal to inspection Skin Other: +2 edema left leg CEAP Classification C4 - skin color changes Ep - Etiology Primary As - superficial veins P - reflux General skin exam: dry skin Neuro General: oriented to person, oriented to place and oriented to time Extrem Right lower extremity: full ROM, normal capillary refill and edema Left lower extremity: full ROM, normal capillary refill and edema Psych Mental Status: mental status grossly normal Results Reviewed Results Reviewed: CT venogram dated 08/24/2023 demonstrates compression of the left common iliac vein by overlying right common iliac artery. Thrombosis of left iliac veins are again in concern. Written report and images were reviewed. Assessment & Plan Assessment & Plan (1) DVT (deep venous thrombosis): Code(s): I82.409 - Acute embolism and thrombosis of unspecified deep veins of unspecified lower extremity Qualifiers: Affected thrombotic vein of extremity: iliac Chronicity: acute DVT location: lower extremity Laterality: left Qualified Code(s): I82.422 - Acute embolism and thrombosis of left iliac vein Plan: Patient notes DVT with concerns of May-Thurner. I have discussed the pathophysiology of peripheral vascular disease with the patient. I have also discussed risk factor modification. I have reviewed the patient's CT venogram. the patient would benefit from a left leg endovascular peripheral angiogram with possible angioplasty, stent, and/or atherectomy in addition to mechanical venous thrombectomy.. This has been discussed in detail with the patient along with risks, benefits, and complications. This includes but is not limited to bleeding, infection, heart attack, need for emergent surgical repair, limb ischemia, blood vessel damage, bleeding, puncture, kidney injury, bruising, allergic reaction, and skin reaction. The patient demonstrates a clear understanding. We will schedule for the next appropriate time. Thank you for allowing us to assist in this patient's care. (2) May-Thurner syndrome: Code(s): I87.1 - Compression of vein Plan: See above plan for possible stenting Coding Level of Care Code Est Pt Level 4 (18385) Diagnoses Acute deep vein thrombosis (DVT) of iliac vein of left lower extremity I82.422 Affected thrombotic vein of extremity: iliac Chronicity: acute DVT location: lower extremity Laterality: left May-Thurner syndrome I87.1
== END 2023-08-30 13:43 | disposition home or self-care (01) ==
PROVIDERS: PCP Internal Medicine; Visit Provider Surgery Vascular Surgery
DX: I82.422 Acute embolism and thrombosis of left iliac vein (principal); I87.1 Compression of vein
CPT/HCPCS: 99214

== ENCOUNTER → 2023-08-30 12:57 | Outpatient (BNVA) | payer OTHER, SELFPAY | PROVIDERS: PCP Internal Medicine; Visit Provider Surgery Vascular Surgery | DX: I82.422 Acute embolism and thrombosis of left iliac vein (principal); I87.1 Compression of vein | CPT/HCPCS: 99212 ==

== ENCOUNTER 2023-09-07 06:58 | Day surgery (SDC) | payer OTHER, SELFPAY ==
[2023-09-07] VITALS (8 sets, daily range): BP systolic 110–128; BP diastolic 61–83; PULSE 54–71; RESP 16–18; TEMP 36.3–36.4; O2SAT 97–99; BMI 42.0
[2023-09-07 07:31] LABS: MANUAL DIFF FLAG NO
[2023-09-07 07:50] LABS: Basophils Percent Auto 0.6 % (0-2); Eosinophils Absolute Auto 0.2 X10*3/uL (0.0-0.4); Eosinophils Percent Auto 3.3 % (0-4); Hematocrit 42.3 % (42.0-52.0); Hemoglobin 14.2 g/dl (14.0-18.0); Imm Gran Abs Auto 0.02 X10*3/uL (0.00-0.03); Imm Gran Pct Auto 0.3 % (0.0-0.4); Lymphocytes Absolute Auto 2.5 X10*3/uL (1.2-4.9); Lymphocytes Percent Auto 35.6 % (20-40); Mean Corpuscular HGB Conc 33.6 g/dl (31.0-36.0); Mean Corpuscular Hemoglobin 32.2 pg (27.0-33.0); Mean Corpuscular Volume 95.9 fL (80.0-98.0); Mean Platelet Volume 9.2 fL (9.4-12.4); Monocytes Absolute Auto 0.6 X10*3/uL (0.1-1.2); Monocytes Percent Auto 8.1 % (2-11); Neutrophils Absolute Auto 3.6 x10*3/uL (2.0-8.3); Neutrophils Percent Auto 52.1 % (45-73); Platelet Count 224 X10*3/uL (160-400); Red Blood Count 4.41 X10*6/uL (4.60-5.80); Red Cell Distribution Width 13.5 % (11.0-16.0); White Blood Count 6.9 X10*3/uL (4.8-10.8)
[2023-09-07 08:02] LABS: Blood Urea Nitrogen 16 mg/dL (9-16); Creatinine Clr Calc Pharmacy 146.9; Estimated Glomerular Filt Rate > 60
--- NOTE | 2023-09-07 12:05 | W.PM.OPN ---
Operative Note Operative Note Date of Service: 09/07/23 Narrative: Angiogram report from [facility] Preoperative diagnosis: DVT 2. May-Thurner syndrome Postoperative diagnosis: Same Procedure: 1. Ultrasound-guided left common femoral veinaccess 2. venogram of left common iliac and external iliac vein Surgeon:Jabari Umana M.D., FACS, RPVI Metallurgical Laboratory Assistant:None Anesthesia: Local with moderate conscious sedation. Total intraservice moderate sedation time was 60 minutes. I monitored the patient's level of consciousness and physiologic status continuously throughout the procedure. Specimens:none Drains:none Estimated blood loss: Less than 10 ml Implant: non Indications: very pleasant 33-year-old gentleman with a prior history of DVT Who had undergone thrombectomy. Subsequent to that he had a CT scan which was concerning for May-Thurner syndrome. He now presents for endovascular intervention. The patient has signed the informed consent after reviewing risks, complications, benefits, and alternatives previously discussed with the patient. The patient was given the opportunity to ask any additional questions or voice any concerns. All questions were answered to the patient's satisfaction. Procedure in detail: Patient was brought to the angiography suite prior to which a time-out was called for patient identification and site verification. Bilateral groins were prepped and draped in the standard surgical fashion. Under ultrasound guidance left common femoral veinwas punctured with micro puncture needle and wire. Subsequently a precision 4 Canadian sheath was then placed. Bentson wire was advanced as far up as we could go into the iliacs.. 4 Canadian Flush catheter was brought up and parked at the level of the renal arteries. Venogramwas then undertaken. we did multiple wire and catheter exchanges to try to traverse this occlusion. We also upsized to a 5 Canadian sheath. Unfortunately we were unable to do so. Multiple orthogonal views were undertaken. After an exhaustive effort we had to removed catheter wire sheath. 10 minutes of direct pressure was held. Patient tolerated the procedure well. Interpretation of films: 1. Ultrasound demonstrates appropriate Left femoral vein puncture. Image of which was saved. 2. venogram demonstrated patent external iliac to common iliac vein. Proximal iliac vein was total occlusion fed by collaterals. Conclusion: 1. Successful venogram 2. Anticoagulation status: no change in can resume Eliquis today This note is constructed using voice recognition software. While every effort has been made to ensure accuracy, hydrogen power plant engineer errors may have been included. Thank you for allowing me to participate in the care of your patient. Yours sincerely, Jabari Umana MD, FACS, R.P.V.I.
== END 2023-09-07 14:20 | disposition home or self-care (01) ==
PROVIDERS: PCP Internal Medicine; Visit Provider Surgery Vascular Surgery
DX: E34.0 Carcinoid syndrome (principal); Z86.718 Personal history of other venous thrombosis and embolism; Z79.01 Long term (current) use of anticoagulants; Z79.899 Other long term (current) drug therapy; Z87.891 Personal history of nicotine dependence; Z98.890 Other specified postprocedural states
CPT/HCPCS: 36247; 36415; 75625; 76937; 82565; 84520; 85025; 99152; 99153; A4364; C1769; C1887; J1644; J2250; J2310; J3010; Q9967

== ENCOUNTER → 2023-09-07 06:58 | Outpatient (BNV) | payer OTHER, SELFPAY | PROVIDERS: PCP Internal Medicine; Visit Provider Surgery Vascular Surgery | DX: I74.5 Embolism and thrombosis of iliac artery (principal); I87.1 Compression of vein | CPT/HCPCS: 36215; 75774; 75820; 76937 ==

== ENCOUNTER 2023-09-22 14:01 | Outpatient (AMB) | payer OTHER, SELFPAY ==
[2023-09-22 14:11] VITALS: BP 122/84; PULSE 80; O2SAT 95
--- NOTE | 2023-09-22 14:11 | MHC.OFFVIS ---
Intake Vital Signs 09/22/23 14:11 Height 5 ft 11 in BP 122/84 Blood Pressure Location Rt brachial Position Sitting Pulse 80 Pulse Source Pulse Oximeter Pulse Oximetry (%) 95 Oxygen Delivery Method Room Air Intake Visit Reasons: 2 week follow up left leg angio Intake Note: Pt presents to the office today for a 2 week follow up left leg angio. Pt states he is feeling good. Pt states he is able to walk better. Pt states every once in a while he will get a cramping area in his thigh but denies any other concerns at this time. Allergies No Known Allergies Allergy (Verified 09/22/23 14:13) HPI 2 week follow up left leg angio HPI Details Very pleasant 33-year-old gentleman presents for follow-up status post endovascular intervention for DVT. He had prior venous thrombectomy. On follow-up it was noted that the iliofemoral segment was occluded. He had a CT scan which is concerning for May-Thurner syndrome. He now presents for routine follow-up. He is being maintained on Eliquis. He does demonstrate a significant improvement in that left leg. [facility] Medical History DVT (deep venous thrombosis) Family History Other Blood clotting tendency Social History Household Members: Family Housing: Apartment Do you presently have visiting nurse or other home services: No Alcohol intake: current Alcohol intake frequency: holidays/special occasions only Patient Tobacco Use Status: Former Tobacco user Tobacco use type: Cigarette Substance Use Type: Caffiene service: No Review of Systems Const All systems reviewed & are unremarkable except as noted in HPI and below Reports no additional complaints ENT Reports Normal hearing present Card Denies chest pain, Denies chest pain at rest, Denies chest pain with activity and Denies pedal edema Resp Denies cough GI Denies abdominal pain Musc Denies abnormal gait, Denies muscle cramps and Denies radiating pain into limb Skin/Breast Denies skin ulcer and Denies wounds Neuro Reports Normal hearing present and Denies abnormal gait Psych Reports no additional complaints Physical Exam Vital Signs: Last Vital Signs Pulse 80 09/22/23 14:11 BP 122/84 09/22/23 14:11 Pulse Ox 95 09/22/23 14:11 Oxygen Delivery Method Room Air 09/22/23 14:11 Const General: cooperative, healthy appearing and comfortable Orientation/consciousness: oriented to person, oriented to place and oriented to time HEENT Head: Yes normal to inspection Neck Neck: Yes normal visual inspection Carotids: no bruits Chest Chest palpation & inspection: normal inspection of the chest Resp Effort & Inspection: normal respiratory effort and able to speak in complete sentences Auscultation: clear to auscultation bilaterally, no crackles, no rales, no rhonchi and no wheezes Cardio Rate: regular rate Rhythm: regular rhythm Heart sounds: S1 normal heart sound present and S2 normal heart sound present Bruits: no carotid bruits Peripheral pulses: Peripheral pulses 2+ throughout GI Inspection: Yes normal to inspection Skin Wounds: no wounds Hair: normal Neuro General: oriented to person, oriented to place and oriented to time Cranial nerves: Yes CN's II-XII intact bilaterally and Yes Normal hearing present Cognition (Neuro): normal cognition Motor exam (neuro): 5/5 motor strength present throughout Extrem Other: venous exam: +2 edema left leg General: No clubbing, No cyanosis and Yes edema Psych Appearance: grossly normal Mental Status: mental status grossly normal Speech and movement: Normal speech and movement present Assessment & Plan Assessment & Plan (1) May-Thurner syndrome: Code(s): I87.1 - Compression of vein Plan: In short patient has done well with thrombectomy and is being maintained on Eliquis. Unfortunately left iliac segment has gone on to occlude. It is concerning for May-Thurner syndrome. At the current time would recommend anticoagulation long-term for him. We did discuss routine conservative measures including compression elevation and exercise. He will follow up with us on an as-needed basis. Thank you for allowing us to assist in his care. Coding Level of Care Code Est Pt Level 4 (21137) Diagnoses May-Thurner syndrome I87.1
== END 2023-09-22 14:32 | disposition home or self-care (01) ==
PROVIDERS: PCP Internal Medicine; Visit Provider Surgery Vascular Surgery
DX: I87.1 Compression of vein (principal)
CPT/HCPCS: 99214

== ENCOUNTER → 2023-09-22 14:01 | Outpatient (BNVA) | payer OTHER, SELFPAY | PROVIDERS: PCP Internal Medicine; Visit Provider Surgery Vascular Surgery | DX: I87.1 Compression of vein (principal) | CPT/HCPCS: 99212 ==

== ENCOUNTER 2024-04-12 13:04 | Outpatient (REF) | payer OTHER, SELFPAY ==
--- NOTE | 2024-04-12 13:14 | ECG_ITS ---
Test Reason : i82.401 Blood Pressure : / mmHG Vent. Rate : 055 BPM Atrial Rate : 055 BPM P-R Int : 146 ms QRS Dur : 076 ms QT Int : 384 ms P-R-T Axes : 056 014 026 degrees QTc Int : 367 ms Sinus bradycardia Otherwise normal ECG When compared with ECG of 07-AUG-2023 14:27, Vent. rate has decreased BY 33 BPM QT has shortened Referred By: Adam Méndez Electronically Signed By:ALLEN GARCIA
[2024-04-12 13:39] LABS: Hematocrit 42.3 % (42.0-52.0); Hemoglobin 14.5 g/dl (14.0-18.0); Mean Corpuscular HGB Conc 34.3 g/dl (31.0-36.0); Mean Corpuscular Hemoglobin 32.2 pg (27.0-33.0); Mean Platelet Volume 8.9 fL (9.4-12.4); Platelet Count 228 X10*3/uL (160-400); Red Cell Distribution Width 12.1 % (11.0-16.0); White Blood Count 6.4 X10*3/uL (4.8-10.8)
[2024-04-12 13:45] LABS: Prothrombin Time 11.8 SEC (11.1-13.3)
[2024-04-12 14:06] LABS: Anion Gap 12 (12-20); Blood Urea Nitrogen 14 mg/dL (9-16); Calcium 10.3 mg/dL (8.4-10.2); Carbon Dioxide 30 mmol/L (22-29); Chloride 105 mmol/L (96-108); Estimated Glomerular Filt Rate > 60; Glucose Random 74 mg/dL (60-115); Potassium 4.5 mmol/L (3.3-5.1); Sodium 142 mmol/L (135-145)
== END 2024-04-12 13:05 | disposition home or self-care (01) ==
LOC: HO.LAB 13:04
PROVIDERS: Referring Provider Surgery Vascular Surgery; Visit Provider Surgery Vascular Surgery
DX: I82.401 Acute embolism and thrombosis of unspecified deep veins of right lower extremity (principal)
CPT/HCPCS: 36415; 80048; 85027; 85610; 93005

== ENCOUNTER → 2024-04-12 13:14 | Outpatient (BNV) | payer OTHER, SELFPAY | PROVIDERS: Referring Provider Surgery Vascular Surgery; Visit Provider Internal Medicine | DX: R00.1 Bradycardia, unspecified (principal); I82.401 Acute embolism and thrombosis of unspecified deep veins of right lower extremity | CPT/HCPCS: 93010 ==

== ENCOUNTER 2024-05-02 12:05 | Outpatient (REF) | payer OTHER, SELFPAY ==
[2024-05-02 13:01] LABS: Prothrombin Time 12.7 SEC (11.1-13.3)
[2024-05-02 13:16] LABS: Anion Gap 9 (12-20); Blood Urea Nitrogen 16 mg/dL (9-16); Calcium 9.8 mg/dL (8.4-10.2); Carbon Dioxide 30 mmol/L (22-29); Chloride 103 mmol/L (96-108); Estimated Glomerular Filt Rate > 60; Glucose Random 95 mg/dL (60-115); Potassium 4.3 mmol/L (3.3-5.1); Sodium 138 mmol/L (135-145)
[2024-05-02 13:40] LABS: Hematocrit 41.4 % (42.0-52.0); Hemoglobin 15.1 g/dl (14.0-18.0); Mean Corpuscular HGB Conc 36.5 g/dl (31.0-36.0); Mean Corpuscular Hemoglobin 33.3 pg (27.0-33.0); Mean Corpuscular Volume 91.4 fL (80.0-98.0); Mean Platelet Volume 9.3 fL (9.4-12.4); Platelet Count 269 X10*3/uL (160-400); Red Blood Count 4.53 X10*6/uL (4.60-5.80); Red Cell Distribution Width 12.1 % (11.0-16.0); White Blood Count 5.9 X10*3/uL (4.8-10.8)
== END 2024-05-02 12:06 | disposition home or self-care (01) ==
LOC: HO.LAB 12:05
PROVIDERS: PCP Internal Medicine; Visit Provider Surgery Vascular Surgery
DX: I82.401 Acute embolism and thrombosis of unspecified deep veins of right lower extremity (principal)
CPT/HCPCS: 36415; 80048; 85027; 85610

== ENCOUNTER 2024-06-13 17:19 | Emergency (ER) | payer OTHER, SELFPAY ==
--- NOTE | ~2024-06-13 | XR_ITS ---
EXAMINATION: XR CHEST CLINICAL INFORMATION: Cough, dyspnea COMPARISON: None available. TECHNIQUE: Frontal view of the chest was obtained. FINDINGS: No significant abnormality is noted involving the heart, lungs, mediastinum, bony thorax or soft tissues. XR/XR chest 1V IMPRESSION: Unremarkable examination. Electronically signed by: Sohail Humphrey DO 06/13/2024 10:24 PM EDT
--- NOTE | ~2024-06-13 | CT_ITS ---
EXAMINATION: CT HEAD WITHOUT IV CONTRAST CLINICAL INFORMATION: headache dizziness on eliquis COMPARISON: None. TECHNIQUE: Contiguous axial imaging was performed from the skull base to vertex without intravenous contrast. Sagittal and coronal reformatted images were obtained. This CT examination was performed using dose optimization techniques as appropriate, variously including the following: * Automated exposure control * Adjustment of mA and/or kV according to patient size (this includes techniques or standardized protocols for targeted exams where dose is matched to indication/reason for exam; i.e. extremities or head) Use of iterative reconstruction technique DLP: 780 mGy-cm FINDINGS: No acute osseous or soft tissue abnormality. The mastoids are clear. Mild maxillary sinus mucosal thickening. There is no evidence of acute intracranial hemorrhage or territorial infarction. No abnormal mass effect or midline shift is seen. [place] to white matter differentiation is well preserved. No extra-axial fluid collections are identified. No hydrocephalus. No significant volume loss. There is no abnormal attenuation within the brain parenchyma. CT/CT head/brain wo IV con IMPRESSION: No acute intracranial abnormality including hemorrhage, mass effect, hydrocephalus, or acute territorial edematous infarction. Electronically signed by: Thiago Rubi MD 06/13/2024 08:58 PM EDT
--- NOTE | 2024-06-13 17:21 | ECG_ITS ---
Test Reason : CHEST PAIN Blood Pressure : / mmHG Vent. Rate : 080 BPM Atrial Rate : 080 BPM P-R Int : 144 ms QRS Dur : 080 ms QT Int : 358 ms P-R-T Axes : 038 000 005 degrees QTc Int : 412 ms Normal sinus rhythm Normal ECG When compared with ECG of 12-APR-2024 13:23, No significant change was found Referred By: Sheryl Pendleton Electronically Signed By:GUSTABO MCDANIEL
--- NOTE | 2024-06-13 17:59 | ED_ITS ---
HPI - Chest Pain General Chief Complaint: General Medical Stated Complaint: ?DVT, chest pain Time Seen by Provider: 06/13/24 20:29 Source: patient and old records reviewed Mode of arrival: ambulatory Limitations: no limitations History of Present Illness ED Provider: DEEPA HPI narrative: 34 yo male with PMH of May-Thurner Syndrome on eliquis compliant only missed this AM due to being here - hx of DVT/PE, s/p removal of his IVC filter, he is here with c/o having URI as did his family and he has had nasal congestion and his lungs burning. He feels like he has bronchitis. He has felt dizzy and tired with the sinus congestion. He denies chest pain but feels he is coughing and his lungs are on fire. He used to smoke. He feels dehydration. Most of his family got rid of this cold but his has been lingering for a few extra days. MD complaint: other (URI, dizziness, lung burning) Pertinent past history: other (PE) Onset (ago): day(s) (1) Timing of current episode: episodic Prior episodes: Yes Onset: during rest Pain location: left chest and right chest Pain radiation: none Severity: mild Quality: burning Relieving factors: nothing Exacerbating factors: other (coughing) Context: recent illness Associated symptoms: cough and other (nasal congestion) Related Data Home Medications ?Medication ?Instructions ?Recorded ?Confirmed acetaminophen 325 mg tablet 650 mg PO Q6H PRN Headache 08/07/23 09/07/23 (Tylenol) albuterol sulfate 90 mcg/actuation 2 puff inhalation Q4-6H PRN 08/07/23 09/07/23 aerosol inhaler wheezing apixaban 5 mg (74 tabs) tablets in See Rx Instructions .Route .COMPLEX 08/07/23 09/07/23 a dose pack (Eliquis DVT-PE Treat 30D Start) apixaban 5 mg tablet See Rx Instructions .Route .COMPLEX 08/07/23 09/07/23 lidocaine 5 % topical patch 1 patch topical DAILY PRN mild pain 08/07/23 09/07/23 Previous Rx's ?Medication ?Instructions ?Recorded albuterol sulfate 90 mcg/actuation 2 puff inhalation QID PRN 06/13/24 aerosol inhaler shortness of breath or wheezing #6.7 grams amoxicillin 875 mg-potassium 1 tab PO BID #14 tabs 06/13/24 clavulanate 125 mg tablet Allergies Allergy/AdvReac Type Severity Reaction Status Date / Time No Known Allergies Allergy Verified 06/13/24 18:04 Review of Systems 2 Review of Systems: Constitutional : No Weight loss, No Fever, No Chills ENT/Mouth : No sore throat, pos Rhinorrhea, pos nasal congestion Eyes: No Eye Pain, No Swelling Cardiovascular : pos Chest Pain, pos SOB, no Dyspnea on Exertion, No Orthopnea, No Edema, No Palpitations Respiratory : pos Cough, pos Sputum Gastrointestinal : pos Nausea, No Vomiting, No Diarrhea, No abdominal Pain, No Hematochezia, No Melena Genitourinary : No Dysuria, No Urinary Frequency Musculoskeletal : No joint pain, No Myalgias, No Joint Swelling Skin : No Skin Lesions, No rash Neuro : No Weakness, No Numbness, pos Dizziness, No Headache Psych : No Anxiety/Panic, No Depression Heme/Lymph: No Bruising, No Lymphadenopathy Endocrine : No Polyuria, No Polydipsia All other systems reviewed and are negative [facility] Past Medical History Attestation statement: The following information was validated with the patient. Source: old records reviewed Medical History DVT (deep venous thrombosis) Family History Family History Other Blood clotting tendency Social History Social History Household Members: Family Housing: Apartment Do you presently have visiting nurse or other home services: No Alcohol intake: current Alcohol intake frequency: holidays/special occasions only Patient Tobacco Use Status: Former Tobacco user Tobacco use type: Cigarette Smoked in Last 30 Days: No Use of substances other than those prescribed or required for medical reasons: No Substance Use Type: Caffiene Advance Directives: Yes Advance Directives on File: Yes Advance Directives Date on File: 08/12/23 Do you have a plan to hurt others: No Plan service: No Physical Exam 2 Vital Signs: Vital Signs: Last Vital Signs Temp 98 F 06/13/24 18:00 Pulse 89 06/13/24 18:00 Resp 19 06/13/24 18:00 BP 123/77 06/13/24 18:00 Pulse Ox 98 06/13/24 18:00 O2 Del Method Room Air 06/13/24 18:00 BMI result Body Mass Index 45.2 Appearance: Alert. Oriented X3. No acute distress. Eyes: Pupils equal, round and reactive to light. ENT: Pharynx normal. Nasal congestion heard Neck: Normal inspection. Neck supple. CVS: Normal heart rate and rhythm. Pulses normal. Respiratory: No respiratory distress. Breath sounds anterior rhonchi noted Abdomen: Soft and nontender. Skin: Skin warm and dry. Normal skin color. Normal skin turgor. Extremities: No lower extremity edema. No calf ttp Neuro: Oriented X 3. No motor deficit. No sensory deficit. Course Course Course Narrative: This is a Rapid Medical Exam performed in triage by Sheryl Pendleton PA-C. Full HPI, ROS and PE to be performed by primary ED provider. 34 yo M w/PMHx DVT/PE on Eliquis s/p IVF filter placement & removal, May-Thurner syndrome, presenting to the ED c/o multiple episodes of dizziness/lightheadedness, feeling off balance, RUE tingling, SOB & intermittent CP x today. Denies CP at present. Denies missing any doses of Eliquis. Admits to similar presentation when had PE in the past PE: talking in complete sentences, lungs CTA, no hypoxia Plan: EKG, labs, viral studies, CTA chest Medications Administered Discontinued Medications Generic Name Dose Route Start Last Admin Trade Name Freq PRN Reason Stop Dose Admin Sodium Chloride 1,000 mls @ 999 mls/hr 06/13/24 20:40 06/13/24 20:43 Ns IV 06/13/24 21:40 999 mls/hr .Q1H1M ONE Administration Medical Decision Making Medical Decision Making MDM Narrative: 34 yo male with PMH of May-Thurner Syndrome on eliquis only missed this AM here with c/o URI symptoms and sinus pressure now with cough, dizziness, and feeling like his lungs are burning. He feels like he has bronchitis. At this time given only one missed dose of eliquis I doubt he has VTE and has not had VTE through eliquis before. I suspect viral illness more. He will get labs, EKG, CXR, CT head given eliquis and dizziness. IVF ordered. He is not toxic does not have focal exam. Differential Diagnosis Differential Diagnoses: The differential diagnosis associated with the presentation includes bronchitis, sinusitis, Admission/Observation Consideration of admission/observation: Escalation of care including admission/observation considered negative work up at this time stable for DC no tachycadria no hypoxia can be DC home Lab Data MDM Lab Attestation statement: I reviewed the patient's lab results. 06/13/24 18:24 06/13/24 18:24 Labs: Lab Results 06/13/24 Range/Units 18:24 WBC 8.4 (4.8-10.8) X10*3/uL RBC 4.09 L (4.60-5.80) X10*6/uL Hgb 13.3 L (14.0-18.0) g/dl Hct 37.7 L (42.0-52.0) % MCV 92.2 (80.0-98.0) fL MCH 32.5 (27.0-33.0) pg MCHC 35.3 (31.0-36.0) g/dl RDW 12.9 (11.0-16.0) % Plt Count 199 D (160-400) X10*3/uL MPV 8.6 L (9.4-12.4) fL Immature Gran % (Auto) 0.2 (0.0-0.4) % Neut % (Auto) 72.5 (45-73) % Lymph % (Auto) 16.6 L (20-40) % Carver % (Auto) 9.0 (2-11) % Eos % (Auto) 1.1 (0-4) % Baso % (Auto) 0.6 (0-2) % Lymph # (Auto) 1.4 (1.2-4.9) X10*3/uL Carver # (Auto) 0.8 (0.1-1.2) X10*3/uL Eos # (Auto) 0.1 (0.0-0.4) X10*3/uL Baso # (Auto) 0.1 (0.0-0.2) X10*3/uL Abs Immat Gran (auto) 0.02 (0.00-0.03) X10*3/uL Absolute Neuts (auto) 6.1 (2.0-8.3) x10*3/uL Absolute Nucleated RBC 0.000 (0.0-0.012) X10*3/uL Nucleated RBC % (auto) 0.0 (0.0-0.2) /100WBC PT 13.2 H (10.9-12.4) SEC INR 1.1 (0.9-1.1) Sodium 138 (135-145) mmol/L Potassium 4.0 (3.3-5.1) mmol/L Chloride 104 (96-108) mmol/L Carbon Dioxide 27 (22-29) mmol/L Anion Gap 11 L (12-20) BUN 10 (9-16) mg/dL Creatinine 1.08 (0.5-1.4) mg/dL Estim Creat Clear Calc 140.4 Estimated GFR > 60 Random Glucose 93 (60-115) mg/dL Calcium 9.5 (8.4-10.2) mg/dL Magnesium 2.1 (1.6-2.6) mg/dL Total Bilirubin 0.6 (0.0-1.0) mg/dL Direct Bilirubin 0.2 (0.0-0.5) mg/dL AST 23 (5-37) U/L ALT 32 (0-40) U/L Alkaline Phosphatase 58 (39-117) U/L Troponin I High Sens < 2.7 (<3.5-35.0) ng/L B-Natriuretic Peptide 21 (<100) pg/mL Total Protein 7.6 (6.5-8.0) g/dL Albumin 4.2 (3.5-5.0) g/dL Influenza Type A (PCR) NEGATIVE (Negative) Influenza Type B (PCR) NEGATIVE (Negative) RSV RNA Qual (PCR) NEGATIVE (Negative) SARS-CoV-2 RNA (RT-PCR) NEGATIVE (Negative) Independent Interpretation I performed an independent interpretation of an: EKG, Plain X-Ray (normal ) and CT Scan Interpretation: Rate: 80 Rhythm: NSR [place]: normal Normal P waves. Normal MARCELLUS. Normal QRS complex. ST T wave : no ALEX inverted t waves III and aVF qTC: 412 prior studies: no acute ischemia The study has been interpreted contemporaneously by me. . Radiology Impression Discussion of test interpretation with radiology: I have reviewed the radiologist's reading. External Record Review External record reviewed: Inpatient record Prescription Management I considered prescription management with: Antibiotic and Other Discharge Plan Discharge Clinical Impression: Bronchitis Sinusitis Qualifiers: Sinusitis location: unspecified location Chronicity: acute Recurrence: non- recurrent Qualified Code(s): J01.90 - Acute sinusitis, unspecified Patient Disposition: Home, Self-Care Instructions: Sinusitis (ED), Acute Bronchitis (ED) Additional Instructions: labs and EKG reassuring CT head normal no acute findings on work up and your vital signs were reassuring at this time will treat as a bronchitis/sinusitis take all medications as prescribed use the inhaler return for any worsening symptoms or concerns. rest and stay hydrated - covid/flu/rsv negative Prescriptions: New albuterol sulfate 90 mcg/actuation HFA aerosol inhaler 2 puff inhalation QID PRN (Reason: shortness of breath or wheezing) Qty: 6.7 0RF amoxicillin-pot clavulanate 875-125 mg tablet 1 tab PO BID Qty: 14 0RF No Action lidocaine 5 % adhesive patch,medicated 1 patch topical DAILY PRN (Reason: mild pain) albuterol sulfate 90 mcg/actuation HFA aerosol inhaler 2 puff inhalation Q4-6H PRN (Reason: wheezing) apixaban 5 mg Tablet See Rx Instructions .ROUTE .COMPLEX Rx Instructions: 5 mg orally BID; START DATE: 08/12/23 Eliquis DVT-PE Treat 30D Start 5 mg (74 tabs) tablets,dose pack See Rx Instructions .ROUTE .COMPLEX Rx Instructions: 10 mg orally BID; END DATE: 08/11/23 acetaminophen [Tylenol] 325 mg Tablet 650 mg PO Q6H PRN (Reason: Headache) Stand Alone Forms: Work/School Release Print Language: Urdu
[2024-06-13 18:00] VITALS: BP 123/77; PULSE 89; RESP 19; TEMP 36.6; O2SAT 98; BMI 45.2
[2024-06-13 18:29] LABS: MANUAL DIFF FLAG NO
[2024-06-13 18:36] LABS: Basophils Absolute Auto 0.1 X10*3/uL (0.0-0.2); Basophils Percent Auto 0.6 % (0-2); Eosinophils Absolute Auto 0.1 X10*3/uL (0.0-0.4); Eosinophils Percent Auto 1.1 % (0-4); Hematocrit 37.7 % (42.0-52.0); Hemoglobin 13.3 g/dl (14.0-18.0); Imm Gran Abs Auto 0.02 X10*3/uL (0.00-0.03); Imm Gran Pct Auto 0.2 % (0.0-0.4); Lymphocytes Absolute Auto 1.4 X10*3/uL (1.2-4.9); Lymphocytes Percent Auto 16.6 % (20-40); Mean Corpuscular HGB Conc 35.3 g/dl (31.0-36.0); Mean Corpuscular Hemoglobin 32.5 pg (27.0-33.0); Mean Corpuscular Volume 92.2 fL (80.0-98.0); Mean Platelet Volume 8.6 fL (9.4-12.4); Monocytes Absolute Auto 0.8 X10*3/uL (0.1-1.2); Neutrophils Absolute Auto 6.1 x10*3/uL (2.0-8.3); Neutrophils Percent Auto 72.5 % (45-73); Platelet Count 199 X10*3/uL (160-400); Red Blood Count 4.09 X10*6/uL (4.60-5.80); Red Cell Distribution Width 12.9 % (11.0-16.0); White Blood Count 8.4 X10*3/uL (4.8-10.8)
[2024-06-13 18:37] LABS: INTERNATIONAL NORM RATIO 1.1 (0.9-1.1); Prothrombin Time 13.2 SEC (10.9-12.4)
[2024-06-13 18:46] LABS: Alanine Aminotransferase 32 U/L (0-40); Albumin Level 4.2 g/dL (3.5-5.0); Alkaline Phosphatase 58 U/L (39-117); Anion Gap 11 (12-20); Aspartate Amino Transferase 23 U/L (5-37); Bilirubin Direct 0.2 mg/dL (0.0-0.5); Bilirubin Total 0.6 mg/dL (0.0-1.0); Blood Urea Nitrogen 10 mg/dL (9-16); Calcium 9.5 mg/dL (8.4-10.2); Carbon Dioxide 27 mmol/L (22-29); Chloride 104 mmol/L (96-108); Creatinine Clr Calc Pharmacy 140.4; Estimated Glomerular Filt Rate > 60; Glucose Random 93 mg/dL (60-115); Magnesium 2.1 mg/dL (1.6-2.6); Sodium 138 mmol/L (135-145); Total Protein 7.6 g/dL (6.5-8.0)
[2024-06-13 18:51] LABS: B Type Natriuretic Peptide 21 pg/mL (<100)
[2024-06-13 18:53] LABS: Troponin-I High Sensitivity < 2.7 ng/L (<3.5-35.0)
[2024-06-13 19:13] LABS: Influenza A PCR NEGATIVE (Negative); Influenza B PCR NEGATIVE (Negative); Resp Syncy Virus RNA Qual PCR NEGATIVE (Negative); SARS COV2 PCR INHOUSE NEGATIVE (Negative)
[2024-06-13] MEDS: 0.9 % Sodium Chloride 1,000 ML 999 ML IV (20:43)
--- OUTSIDE RECORDS SUMMARY | 2024-06-13 20:59 | XMS_ITS | Patient Health Record ---
Author Organization [facility] Address [address] [place] [address] Care Team Providers Care Assistant Customer Service Manager Name Role Phone Marin Quijano Primary Care Provider Migration, Provider Unavailable [phone] Results Component Value Reference Range Notes CBC (H/H, RBC, INDICES, WBC, PLT) Reviewed date:08/24/2023 12:00:00 AM Interpretation: Performing Lab: Notes/Report: HEMATOCRIT 38.9 % 38.5-50.0 HEMOGLOBIN 13.3 g/dL 13.2-17.1 MCH 31.7 pg 27.0-33.0 MCHC 34.2 g/dL 32.0-36.0 MCV 92.6 fL 80.0-100.0 MPV 9.2 fL 7.5-12.5 PLATELET COUNT 386 Thousand/uL 140-400 RDW 12.6 % 11.0-15.0 RED BLOOD CELL COUNT 4.20 Million/uL 4.20-5.80 WHITE BLOOD CELL COUNT 6.7 Thousand/uL 3.8-10.8 COMPREHENSIVE METABOLIC PANE L Reviewed date:08/24/2023 12:00:00 AM Interpretation: Performing Lab: Notes/Report: ALBUMIN 3.9 g/dL 3.6-5.1 ALBUMIN/GLOBULIN RATIO 1.1 (calc) 1.0-2.5 ALKALINE PHOSPHATASE 56 U/L 36-130 ALT 17 U/L 9-46 AST 14 U/L 10-40 BILIRUBIN, TOTAL 0.4 mg/dL 0.2-1.2 BUN/CREATININE RATIO SEE NOTE: (calc) 6-22 CALCIUM 9.4 mg/dL 8.6-10.3 CARBON DIOXIDE 31 mmol/L 20-32 CHLORIDE 101 mmol/L 98-110 CREATININE 0.98 mg/dL 0.60-1.26 EGFR 104 mL/min/1.73m2 > OR = 60 GLOBULIN 3.4 g/dL (calc) 1.9-3.7 GLUCOSE 98 mg/dL 65-99 POTASSIUM 4.8 mmol/L 3.5-5.3 PROTEIN, TOTAL 7.3 g/dL 6.1-8.1 SODIUM 138 mmol/L 135-146 UREA NITROGEN (BUN) 15 mg/dL 7-25 CBC (H/H, RBC, INDICES, WBC, PLT) (9009) (Not yet reviewed by provider) Interpretation: Performing Lab:NL2, [facility] Veronica Leahy Notes/Report: WHITE BLOOD CELL COUNT 6.7 3.8-10.8 Thousand/ uL RED BLOOD CELL COUNT 4.20 4.20-5.80 Million/uL HEMOGLOBIN 13.3 13.2-17.1 g/dL HEMATOCRIT 38.9 38.5-50.0 % MCV 92.6 80.0-100.0 fL MCH 31.7 27.0-33.0 pg MCHC 34.2 32.0-36.0 g/dL RDW 12.6 11.0-15.0 % PLATELET COUNT 386 140-400 Thousand/uL MPV 9.2 7.5-12.5 fL COMPREHENSIVE METABOLIC PANE L (20038) (Not yet reviewed by provider) Interpretation: Performing Lab:2, [facility] Veronica Leahy Notes/Report: GLUCOSE 98 65-99 mg/dL Fasting reference interval UREA NITROGEN (BUN) 15 7-25 mg/dL CREATININE 0.98 0.60-1.26 mg/dL EGFR 104 > OR = 60 mL/min/1.73m2 BUN/CREATININE RATIO SEE NOTE: 6-22 (calc) Not Reported: BUN and Creatinine are within reference range. SODIUM 138 135-146 mmol/L POTASSIUM 4.8 3.5-5.3 mmol/L CHLORIDE 101 98-110 mmol/L CARBON DIOXIDE 31 20-32 mmol/L CALCIUM 9.4 8.6-10.3 mg/dL PROTEIN, TOTAL 7.3 6.1-8.1 g/dL ALBUMIN 3.9 3.6-5.1 g/dL GLOBULIN 3.4 1.9-3.7 g/dL (calc) ALBUMIN/GLOBULIN RATIO 1.1 1.0-2.5 (calc) BILIRUBIN, TOTAL 0.4 0.2-1.2 mg/dL ALKALINE PHOSPHATASE 56 36-130 U/L AST 14 10-40 U/L ALT 17 9-46 U/L TESTOSTERONE, TOTAL, MALES ( ADULT), IA (873) Reviewed date:04/23/2024 06:45:51 AM Interpretation: Performing Lab:NL2, [facility] Veronica Leahy Notes/Report: NON-FASTING NON-FASTING NON-FASTING NON-FASTING TESTOSTERONE, TOTAL, MALES (ADULT), IA 254 250-827 ng/dL HEMOGLOBIN A1c (496) Reviewed date:04/23/2024 06:46:20 AM Interpretation: Performing Lab:NL2, [facility] Veronica Leahy Notes/Report: NON-FASTING NON-FASTING NON-FASTING NON-FASTING HEMOGLOBIN A1c 5.4 <5.7 % of total Hgb For the purpose of screening for the presence of diabetes: <5.7% Consistent with the absence of diabetes 5.7-6.4% Consistent with increased risk for diabetes (prediabetes) > or =6.5% Consistent with diabetes This assay result is consistent with a decreased risk of diabetes. Currently, no consensus exists regarding use of hemoglobin A1c for diagnosis of diabetes in children. According to [place] Diabetes Association (ADA) guidelines, hemoglobin A1c <7.0% represents optimal control in non- diabetic patients. Different metrics may apply to specific patient populations. Standards of Medical Care in Diabetes(ADA). This test was performed on the Cresnecio terese c503 platform. Effective 11/21/23, a change in test platforms from the [employer] Assistant Press Operator to the Cresencio terese c503 may have shifted HbA1c results compared to historical results. Based on laboratory validation testing conducted at [facility], the Cresencio platform relative to the Barraza platform had an average increase in HbA1c value of < or = 0.3%. This difference is within accepted variability established by the National Glycohemoglobin Standardization Program. Note that not all individuals will have had a shift in their results and direct comparisons between historical and current results for testing conducted on different platforms is not recommended. CBC (H/H, RBC, INDICES, WBC, PLT) (9289) Reviewed date:04/23/2024 06:46:07 AM Interpretation: Performing Lab:NL2, [facility] Veronica Leahy Notes/Report: NON-FASTING NON-FASTING NON-FASTING NON-FASTING WHITE BLOOD CELL COUNT 5.9 3.8-10.8 Thousand/ uL RED BLOOD CELL COUNT 4.60 4.20-5.80 Million/uL HEMOGLOBIN 14.8 13.2-17.1 g/dL HEMATOCRIT 44.0 38.5-50.0 % MCV 95.7 80.0-100.0 fL MCH 32.2 27.0-33.0 pg MCHC 33.6 32.0-36.0 g/dL RDW 12.7 11.0-15.0 % PLATELET COUNT 262 140-400 Thousand/uL MPV 9.7 7.5-12.5 fL COMPREHENSIVE METABOLIC PANE L (73245) Reviewed date:04/23/2024 06:48:06 AM Interpretation: Performing Lab:NL2, [facility] Veronica Leahy Notes/Report: NON-FASTING NON-FASTING NON-FASTING NON-FASTING GLUCOSE 102 65-99 mg/dL Fasting reference interval For someone without known diabetes, a glucose value between 100 and 125 mg/dL is consistent with prediabetes and should be confirmed with a follow-up test. UREA NITROGEN (BUN) 16 7-25 mg/dL CREATININE 0.92 0.60-1.26 mg/dL EGFR 112 > OR = 60 mL/min/1.73m2 BUN/CREATININE RATIO SEE NOTE: 6-22 (calc) Not Reported: BUN and Creatinine are within reference range. SODIUM 137 135-146 mmol/L POTASSIUM 4.5 3.5-5.3 mmol/L CHLORIDE 101 98-110 mmol/L CARBON DIOXIDE 29 20-32 mmol/L CALCIUM 9.4 8.6-10.3 mg/dL PROTEIN, TOTAL 7.4 6.1-8.1 g/dL ALBUMIN 4.3 3.6-5.1 g/dL GLOBULIN 3.1 1.9-3.7 g/dL (calc) ALBUMIN/GLOBULIN RATIO 1.4 1.0-2.5 (calc) BILIRUBIN, TOTAL 0.4 0.2-1.2 mg/dL ALKALINE PHOSPHATASE 55 36-130 U/L AST 21 10-40 U/L ALT 46 9-46 U/L TSH (899) Reviewed date:11/24/2023 10:25:40 AM Interpretation: Performing Lab:NL2, [facility] [id number] Saliagustina Leahy Notes/Report: TSH 4.18 0.40-4.50 mIU/L CORTISOL, P.M. (4213) Reviewed date:11/24/2023 10:25:27 AM Interpretation: Performing Lab:NLAcsendo, [facility] [id number] Saliagustina Leahy Notes/Report: CORTISOL, P.M. 8.3 Reference Range 4 p.m. (3-5 p.m.) Specimen: 3.0-17.0 T4, FREE (866) Reviewed date:11/24/2023 10:28:00 AM Interpretation: Performing Lab:NL2, [facility] [place] [id number] Veronica Leahy Notes/Report: T4, FREE 1.4 0.8-1.8 ng/dL SED RATE BY KATHI BUSBY (809) Reviewed date:12/13/2023 10:28:02 AM Interpretation: Performing Lab:NLAcsendo, [facility] [id number] Veronica Leahy Notes/Report: SED RATE BY KATHI LOBATO 19 < OR = 15 mm/h URINALYSIS MACROSCOPIC (5593 ) Reviewed date:11/24/2023 10:25:59 AM Interpretation: Performing Lab:NLAcsendo, [facility] [id number] Veronica Ignaciot Notes/Report: COLOR YELLOW YELLOW APPEARANCE CLEAR CLEAR SPECIFIC GRAVITY 1.009 1.001-1.035 PH 5.5 5.0-8.0 GLUCOSE NEGATIVE NEGATIVE BILIRUBIN NEGATIVE NEGATIVE KETONES NEGATIVE NEGATIVE OCCULT BLOOD NEGATIVE NEGATIVE PROTEIN NEGATIVE NEGATIVE NITRITE NEGATIVE NEGATIVE LEUKOCYTE ESTERASE NEGATIVE NEGATIVE CBC (H/H, RBC, INDICES, WBC, PLT) (1759) Reviewed date:11/24/2023 10:26:14 AM Interpretation: Performing Lab:[facility], [facility] [place], [place] [id number] Veronica [facility] Notes/Report: WHITE BLOOD CELL COUNT 6.0 3.8-10.8 Thousand/ uL RED BLOOD CELL COUNT 4.66 4.20-5.80 Million/uL HEMOGLOBIN 15.1 13.2-17.1 g/dL HEMATOCRIT 42.2 38.5-50.0 % MCV 90.6 80.0-100.0 fL MCH 32.4 27.0-33.0 pg MCHC 35.8 32.0-36.0 g/dL RDW 12.7 11.0-15.0 % PLATELET COUNT 268 140-400 Thousand/uL MPV 9.6 7.5-12.5 fL BASIC METABOLIC PANEL (26961 ) Reviewed date:11/24/2023 10:40:39 AM Interpretation: Performing Lab:[facility], [phone] Quentin Bong [facility] Notes/Report: GLUCOSE 75 65-99 mg/dL Fasting reference interval UREA NITROGEN (BUN) 13 7-25 mg/dL CREATININE 0.91 0.60-1.26 mg/dL EGFR 113 > OR = 60 mL/min/1.73m2 BUN/CREATININE RATIO SEE NOTE: 6-22 (calc) Not Reported: BUN and Creatinine are within reference range. SODIUM 139 135-146 mmol/L POTASSIUM 4.2 3.5-5.3 mmol/L CHLORIDE 102 98-110 mmol/L CARBON DIOXIDE 24 20-32 mmol/L CALCIUM 8.9 8.6-10.3 mg/dL LIPID PANEL, STANDARD (7600) Reviewed date:11/24/2023 10:25:06 AM Interpretation: Performing Lab:[facility], [facility] [address] [facility] Veronica Wallacejude Notes/Report: CHOLESTEROL, TOTAL 159 <200 mg/dL HDL CHOLESTEROL 47 > OR = 40 mg/dL TRIGLYCERIDES 78 <150 mg/dL LDL-CHOLESTEROL 95 Reference range: <100 Desirable range <100 mg/dL for primary prevention; <70 mg/dL for patients with CHD or diabetic patients with > or = 2 CHD risk factors. LDL-C is now calculated using the Millie calculation, which is a validated novel method providing better accuracy than the Friedewald equation in the estimation of LDL-C. Deandre GOMEZ et al. HETAL. 2013;310(19): 3491-8265 (http://education.Med[employer]/faq/F AQ164) CHOL/HDLC RATIO 3.4 <5.0 (calc) NON HDL CHOLESTEROL 112 <130 mg/dL (calc) For patients with diabetes plus 1 major ASCVD risk factor, treating to a non-HDL-C goal of <100 mg/dL (LDL-C of <70 mg/dL) is considered a therapeutic option. Reason For Referral No Information Medications Medication SIG (Take, Route, Frequency, Duration) Notes Start Date End Date Status traMADol HCl 50 MG 1 tablet as needed O rally four times daily for 30 days 12/15/2023 Active Lidocaine 5 % 1 patch remove after 12 hours Externally Once a day for 30 days Active ProAir Digihaler 108 (90 Base) MCG/ACT 1 puff as needed Inhalation every 4 hrs for 30 days 03/05/2024 Active Problems Problem Type SNOMED Code ICD Code Onset Dates Problem Status W/U Status Risk Notes Problem Chronic fatigue syndrome (disorder) (96979761) Chronic fatigue, unspecified (R53.82) Active confirmed Vital Signs Heart Rate 78 /min 03/05/2024 Temperature 98.4 degrees Fahrenheit 11/28/2023 Respiratory Rate 88 /min 03/05/2024 Oximetry 99 % 11/28/2023 Blood pressure diastolic 80 mm Hg 03/05/2024 Weight-kg 151.5 kg 03/05/2024 Blood pressure systolic 110 mm Hg 03/05/2024 Weight 334 lbs 03/05/2024 Procedures Procedure Date Ordered Date Performed Result Body Sit e ECHOCARDIOGRAM 11/17/2023 11/17/2023 N/A Encounters Encounter Location Date Provider Diagnosis [facility] [address] [place] [address] 11/17/2023 Marin Quijano Shortness of breath R06.02 ; Localized swelling of both lower legs R22.43 and Acute embolism and thrombosis of unspecified deep veins of unspecified lower extremity I82.409 [facility] [address] [place] [address] 11/28/2023 Marin Quijano Localized swelling, mass and lump, left lower limb R22.42 and Pain in left leg M79.605 [facility] [address] [address] 03/05/2024 Marin Quijano Shortness of breath R06.02 ; Edema, unspecified R60.9 and Chronic fatigue, unspecified R53.82 [facility] [address] [address] 08/27/2023 Provider Migration [facility] [address] [address] 08/28/2023 Provider Migration [facility] [address] [address] 11/28/2023 Marin Quijano [facility] [address] [address] 03/05/2024 Marin Quijano [facility] [address] [address] 03/05/2024 Marin Quijano [facility] [address] [address] 03/05/2024 Marin Quijano [facility] [address] [address] 03/05/2024 Marin Quijano [facility] [address] [address] 03/05/2024 Marin Quijano Assessments Encounter Date Diagnosis (ICD Code) Assessment Notes Treatment Notes Treatment Clinical Notes 11/28/2023 Localized swelling, mass and lump, left lower limb (ICD-10 - R22.42) compression stockin, continue taking eliquis, elevated foot 11/28/2023 Pain in left leg (ICD-10 - M79.605) script given for tramadol 50 mg 4 x a day as needed 03/05/2024 Shortness of breath (ICD-10 - R06.02) X-ray of lungs were normal, Ordered breztri, 160mcg, and albuterol inhaler, PFT. 11/17/2023 Shortness of breath (ICD-10 - R06.02) 11/17/2023 Localized swelling of both lower legs (ICD-10 - R22.43) 03/05/2024 Edema, unspecified (ICD-10 - R60.9) Referal submitted to vascular Dr Selby 03/05/2024 Chronic fatigue, unspecified (ICD-10 - R53.82) ordered testerone level, TSH normal in 11/17/2023 Acute embolism and thrombosis of unspecified deep veins of unspecified lower extremity (ICD-10 - I82.409) 11/28/2023 Other patient was se en with Dr Quijano, plan is approved by Dr Quijano 03/05/2024 Other Patient was se en with Dr Quijano, plan reviewed and approved. Plan Of Treatment Pending Test Test Name Order Date PFT 03/05/2024 ECHOCARDIOGRAM 11/17/2023 COMPREHENSIVE METABOLIC PANEL (16869) CBC (H/H, RBC, INDICES, WBC, PLT) (1759) 08/23/2023 Insurance Providers Payer Name Payer Address Payer Phone Subscriber Number Group Number Insured Name Patient Relationship to Insured Coverage Start Date Coverage End Date [facility] EPO [address] [place], [place] [id number] ANAI NERI Self - patient is the insured
--- OUTSIDE RECORDS SUMMARY | 2024-06-13 20:59 | XMS_ITS ---
Author Organization [facility] Address [address] [place] [address] Care Team Providers Care Science Liaison Name Role Phone Marin Quijano Primary Care Provider [phone] REASON FOR VISIT Refills Encounters Encounter Location Date Provider Diagnosis [facility] [address] [place] [address] 03/05/2024 Marin Quijano Plan Of Treatment No Information Progress Notes * ZHEN NERIOB:1990 ( 33 yo M)Acc No.[id number]:03/05/2024 Patient:?ANAI NERI :1990???Age:33 Y???Sex:Male Address:[address] [place] [id number] Subjective: * Chief Complaints: * ???Refills * Medical History:? * Surgical History:? * Hospitalization/Major Diagno stic Procedure:? * Medications:? * Allergies:?no[Allergies Veri fied] Objective: * Vitals:? * Physical Examination:? Assessment: Plan: * Treatment: * Procedure Codes:? * true * Date:? Generated for Jessii iftikhar/Scottyg/eTransmitting on:?06/13/2024 08:59 PM EDT
--- OUTSIDE RECORDS SUMMARY | 2024-06-13 20:59 | XMS_ITS ---
Author Organization [facility] Address [address] [place] [address] Care Team Providers Care Catalyst Operator Gasoline Name Role Phone Marin Quijano Primary Care Provider REASON FOR VISIT 6 week f/u Encounters Encounter Location Date Provider Diagnosis [facility] [address] [place] [address] 04/16/2024 Marin Quijano Plan Of Treatment No Information Progress Notes * ZHEN NERIOB:1990 ( 34 yo M)Acc No.[id number]:04/16/2024 Progress Notes Patient:?ANAI NERI Provider:?Marin Quijano MD :1990???Age:34 Y???Sex:Male Chaitanya e:04/16/2024 Address:[address] [place] [address] Subjective: * Chief Complaints: * ???1. 6 week f/u. * Medical History:? Objective: * Vitals:? Assessment: Plan: * Treatment: * Billing Information: * Visit Code:? * Procedure Codes:? * Electronic signature of Denys Quijano MD on 06/13/2024 at 08:58 PM EDT Sign off status: Pending * Provider:?Marin Quijano MD Date:? Generated for Gina buitrago/Radha/eTransmitting on:?06/13/2024 08:58 PM EDT
--- OUTSIDE RECORDS SUMMARY | 2024-06-13 20:59 | XMS_ITS ---
Author Organization [facility] Address [address] [place] [address] Care Team Providers Care Compensation Advisor Name Role Phone Marin Quijano Primary Care Provider REASON FOR VISIT Refills Medications Medication SIG (Take, Route, Frequency, Duration) Notes Start Date End Date Status Breztri Aerosphere 160-9-4.8 MCG/ACT 2 puffs Inhalation Twice a day for 30 days 03/05/2024 04/04/2024 Active ProAir Digihaler 108 (90 Base) MCG/ACT 1 puff as needed Inhalation every 4 hrs for 30 days 03/05/2024 Active Encounters Encounter Location Date Provider Diagnosis [facility] [address] [place] [address] 03/05/2024 Marin Quijano Plan Of Treatment Medication Medication Name Sig Start Date Stop Date Notes Breztri Aerosphere 160-9-4.8 MCG/ACT 2 puffs Inhalation Twice a day for 30 days 03/05/2024 04/04/2024 ProAir Digihaler 108 (90 Base) MCG/ACT 1 puff as needed Inhalation every 4 hrs for 30 days 03/05/2024 Progress Notes * DARONBENITOKAMIOB:1990 ( 33 yo M)Acc No.[id number]:03/05/2024 Patient:?ANAI NERI :1990???Age:33 Y???Sex:Male Address:[address] [place], [address] * Refills? Start ProAir Digihaler Aerosol Powder Breath Activated, 108 (90 Base) MCG/ACT, Inhalation, 2, 1 puff as needed, every 4 hrs, 30 days Start Breztri Aerosphere Aerosol, 160-9-4.8 MCG/ACT, Inhalation, 2, 2 puffs, Twice a day, 30 days Subjective: * Chief Complaints: * ???Refills * Medical History:? * Surgical History:? * Hospitalization/Major Diagno stic Procedure:? * Medications:? * Allergies:?no[Allergies Veri fied] Objective: * Vitals:? * Physical Examination:? Assessment: Plan: * Treatment: * Procedure Codes:? * true * Date:? Generated for Gina buitrago/Radha/eTransmitting on:?06/13/2024 08:58 PM EDT
[2024-06-13 22:00] VITALS: BP 114/73; PULSE 65; RESP 19; TEMP 36.8; O2SAT 99
[2024-06-13 22:17] VITALS: BP 114/73; PULSE 65
[2024-06-13 22:18] VITALS: BP 126/77; BP 130/84; PULSE 74; PULSE 77
[2024-06-13] MEDS: Amoxicillin/Potassium Clav 875 MG TABLET PO (22:33)
[2024-06-13 22:37] VITALS: BP 126/77; PULSE 77; RESP 16; TEMP 36.8; O2SAT 97
== END 2024-06-13 22:38 | disposition home or self-care (01) ==
PROVIDERS: Physician Assistant; Emergency Provider Emergency Medicine
DX: J40 Bronchitis, not specified as acute or chronic (principal); J01.90 Acute sinusitis, unspecified; R06.02 Shortness of breath; Z03.818 Encounter for observation for suspected exposure to other biological agents ruled out; R05.9 Cough, unspecified; Z87.891 Personal history of nicotine dependence; Z86.718 Personal history of other venous thrombosis and embolism; Z79.01 Long term (current) use of anticoagulants
CPT/HCPCS: 0241U; 36415; 70450; 71045; 80048; 80076; 83735; 83880; 84484; 85025; 85610; 93005; 96360; 96361; 99284; 99285

== ENCOUNTER 2024-06-25 19:52 | Emergency (ER) | payer OTHER, SELFPAY ==
--- NOTE | ~2024-06-25 | XR_ITS ---
EXAMINATION: XR CHEST CLINICAL INFORMATION: Cough. COMPARISON: Chest radiograph dated 06/13/2024. TECHNIQUE: 2 views of the chest were obtained. FINDINGS: The heart is normal in size. There may be a subtle left lower lobe opacity. The lungs are otherwise clear. No pleural effusion. No pneumothorax. No acute osseous abnormality. XR/XR chest 2V IMPRESSION: Possible subtle left lower lobe opacity. The lungs are otherwise clear. Electronically signed by: Felix Chaudhry DO 06/25/2024 09:54 PM EDT
--- NOTE | 2024-06-25 20:09 | ED_ITS ---
HPI - URI/Sore Throat General Chief Complaint: Fever Stated Complaint: fever, bronchitis Time Seen by Provider: 06/26/24 05:34 Source: patient Mode of arrival: ambulatory Limitations: no limitations History of Present Illness ED Provider: DR. 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 He feels like he has bronchitis. He has felt dizzy and tired with the sinus congestion. was seen on 06/13 for similar symptoms patient was diagnosed with bronchitis and sent home on Augmentin patient had improvement until 2 days ago when he started to have fever and worsening of the cough again. Quit smoking 4 years ago Related Data Home Medications ?Medication ?Instructions ?Recorded ?Confirmed acetaminophen 325 mg tablet 650 mg PO Q6H PRN Headache 08/07/23 09/07/23 (Tylenol) albuterol sulfate 90 mcg/actuation 2 puff inhalation Q4-6H PRN 08/07/23 09/07/23 aerosol inhaler wheezing apixaban 5 mg (74 tabs) tablets in See Rx Instructions .Route .COMPLEX 08/07/23 09/07/23 a dose pack (Eliquis DVT-PE Treat 30D Start) apixaban 5 mg tablet See Rx Instructions .Route .COMPLEX 08/07/23 09/07/23 lidocaine 5 % topical patch 1 patch topical DAILY PRN mild pain 08/07/23 09/07/23 Previous Rx's ?Medication ?Instructions ?Recorded albuterol sulfate 90 mcg/actuation 2 puff inhalation QID PRN 06/13/24 aerosol inhaler shortness of breath or wheezing #6.7 grams amoxicillin 875 mg-potassium 1 tab PO BID #14 tabs 06/13/24 clavulanate 125 mg tablet levofloxacin 750 mg tablet 750 mg PO DAILY #14 tabs 06/26/24 Allergies Allergy/AdvReac Type Severity Reaction Status Date / Time No Known Allergies Allergy Verified 06/25/24 20:11 Review of Systems 2 Review of Systems: all other systems are reviewed and are negative Constitutional: Reports as per HPI and Reports no additional constitutional complaints Eyes: Reports as per HPI and Reports no additional eye complaints Reports system reviewed and no additional complaints, except as documented Cardiovascular: Reports as per HPI and Reports no additional cardiovascular complaints Respiratory: Reports as per HPI and Reports no additional respiratory complaints Gastrointestinal: Reports as per HPI and Reports no additional gastrointestinal complaints Genitourinary: Reports no additional female genitourinary complaints Musculoskeletal: Reports no additional musculoskeletal complaints Skin/Breast: Reports system reviewed and no additional complaints, except as docu Psychiatric: Reports no additional psychiatric complaints Endocrine: Reports no additional endocrine complaints Hematologic/Lymphatic: Reports no additional hematologic/lymphatic complaints Allergic/Immunologic: Reports no additional allergic/immunologic complaints Reports system reviewed and no additional complaints, except as documented and Reports Abnormal speech present [facility] Past Medical History Medical History DVT (deep venous thrombosis) Family History Family History Other Blood clotting tendency Social History Social History Household Members: Family Housing: Apartment Do you presently have visiting nurse or other home services: No Alcohol intake: current Alcohol intake frequency: holidays/special occasions only Patient Tobacco Use Status: Former Tobacco user Tobacco use type: Cigarette Smoked in Last 30 Days: No Use of substances other than those prescribed or required for medical reasons: No Substance Use Type: Caffiene Advance Directives: Yes Advance Directives on File: Yes Advance Directives Date on File: 08/12/23 service: No Physical Exam 2 Vital Signs: Vital Signs: Last Vital Signs Temp 97.7 F 06/26/24 04:54 Pulse 83 06/26/24 04:54 Resp 19 06/26/24 04:54 BP 94/52 L 06/26/24 04:54 Pulse Ox 95 06/26/24 04:54 O2 Del Method Room Air 06/26/24 04:54 BMI result Body Mass Index 45.5 Vital signs have been reviewed and appear to be correct. Blood pressure elevated. Heart rate normal. Respiratory rate normal. Temperature normal. Oxygen saturation normal. Appearance: Alert. Oriented X3. No acute distress. Head: Normal external exam. Normocephalic. Atraumatic. No Suggs signs noted. No raccoon eyes noted Eyes: PERRLA. EOMI. Conjunctiva and sclera normal. Eyelids normal. ENT: TM's Normal. Pharynx normal. Uvula midline. Moist mucous membranes. No trismus noted. No drooling noted. No muffled voice noted. Neck: Normal inspection. Neck supple. FROM. No adenopathy. Thyroid Normal. No meningeal signs. No neck mass noted. CVS: Normal heart rate and rhythm. Heart sound normal. No murmurs noted. Pulses normal throughout. Respiratory: No respiratory distress. Painless inspiration. Breath sounds normal. No wheezes/rales/rhonchi noted. Chest nontender. No accessory muscle usage noted or decreased air movement noted. Abdomen: Soft and nontender. Bowel sounds normal in all 4 quadrants. No distention noted. No organomegaly noted. No visible injury noted. Back: No CVA tenderness. Full range of motion noted. Skin: Skin warm and dry. Normal skin color. Normal skin turgor. No rashes/lesions/lacerations noted. Extremities: No lower extremity edema. Extremities exhibit normal range of motion. Extremities nontender. Neuro: Oriented X 3. Cranial nerve exam: II-XII are grossly intact No motor deficit. No sensory deficit. Reflexes normal. Course Course Course Narrative: This is a Rapid Medical Examination (RME) performed by Stu Mills PA-C in triage. Full HPI, ROS, assessment and treatment plan per primary provider in the Main ED. 34 yo male with history of DVT/PE on Eliquis, former smoker who presents to the ER for evaluation of fever, cough, lung pain, dizziness and lightheadedness that started yesterday. cough is productive of white/clear phelgm. recently treated for bronchitis with abx. VSS in triage, speaking in complete sentences. Plan: CXR, viral swabs. Reevaluation(s) Reevaluation #1: recently treated with Augmentin for 1 week felt better then started to feel similar symptoms x-ray today is concern of left lower lobe infiltrate will start the patient on Levaquin for 10 days, O2 sat is stable. patient is on Eliquis for history of PE, no tachycardia, no tachypnea, no hypoxia. Symptoms of fever and cough consistent with finding on x-ray and pneumonia. Start the patient on levofloxacin for 10 days. Time: 05:47 Medications Administered Discontinued Medications Generic Name Dose Route Start Last Admin Trade Name Freq PRN Reason Stop Dose Admin Acetaminophen 650 mg 06/26/24 03:45 06/26/24 03:46 Acetaminophen 325 Mg Tablet PO 06/26/24 03:46 650 mg ONCE ONE Administration Medical Decision Making Differential Diagnosis Differential Diagnoses: The differential diagnosis associated with the presentation includes ( Pneumonia, pneumothorax, pleural effusion , pulmonary embolism.) Admission/Observation Consideration of admission/observation: Escalation of care including admission/observation considered Lab Data MDM Lab Attestation statement: I reviewed the patient's lab results. 06/26/24 04:02 06/26/24 04:02 Labs: Lab Results 06/25/24 06/26/24 Range/Units 20:26 04:02 WBC 8.2 (4.8-10.8) X10*3/uL RBC 4.12 L (4.60-5.80) X10*6/uL Hgb 13.2 L (14.0-18.0) g/dl Hct 38.3 L (42.0-52.0) % MCV 93.0 (80.0-98.0) fL MCH 32.0 (27.0-33.0) pg MCHC 34.5 (31.0-36.0) g/dl RDW 12.9 (11.0-16.0) % Plt Count 181 (160-400) X10*3/uL MPV 8.6 L (9.4-12.4) fL Immature Gran % (Auto) 0.4 (0.0-0.4) % Neut % (Auto) 74.1 H (45-73) % Lymph % (Auto) 15.7 L (20-40) % [place] % (Auto) 9.2 (2-11) % Eos % (Auto) 0.2 (0-4) % Baso % (Auto) 0.4 (0-2) % Lymph # (Auto) 1.3 (1.2-4.9) X10*3/uL [place] # (Auto) 0.8 (0.1-1.2) X10*3/uL Eos # (Auto) 0.0 (0.0-0.4) X10*3/uL Baso # (Auto) 0.0 (0.0-0.2) X10*3/uL Abs Immat Gran (auto) 0.03 (0.00-0.03) X10*3/uL Absolute Neuts (auto) 6.1 (2.0-8.3) x10*3/uL Absolute Nucleated RBC 0.000 (0.0-0.012) X10*3/uL Nucleated RBC % (auto) 0.0 (0.0-0.2) /100WBC Sodium 139 (135-145) mmol/L Potassium 4.0 (3.3-5.1) mmol/L Chloride 103 (96-108) mmol/L Carbon Dioxide 25 (22-29) mmol/L Anion Gap 15 (12-20) BUN 8 L (9-16) mg/dL Creatinine 1.08 (0.5-1.4) mg/dL Estim Creat Clear Calc 140.9 Estimated GFR > 60 Random Glucose 114 (60-115) mg/dL Calcium 9.3 (8.4-10.2) mg/dL Influenza Type A (PCR) NEGATIVE (Negative) Influenza Type B (PCR) NEGATIVE (Negative) RSV RNA Qual (PCR) NEGATIVE (Negative) SARS-CoV-2 RNA (RT-PCR) NEGATIVE (Negative) Independent Interpretation I performed an independent interpretation of an: Plain X-Ray ( Chest:Possible subtle left lower lobe opacity. The lungs are otherwise clear. ) Radiology Impression Discussion of test interpretation with radiology: I have reviewed the radiologist's reading. Discharge Plan Discharge Clinical Impression: Pneumonia Patient Disposition: Home, Self-Care Instructions: Community Acquired Pneumonia (ED) Prescriptions: New levofloxacin 750 mg tablet 750 mg PO DAILY Qty: 14 0RF No Action albuterol sulfate 90 mcg/actuation HFA aerosol inhaler 2 puff inhalation QID PRN (Reason: shortness of breath or wheezing) Qty: 6.7 0RF amoxicillin-pot clavulanate 875-125 mg tablet 1 tab PO BID Qty: 14 0RF lidocaine 5 % adhesive patch,medicated 1 patch topical DAILY PRN (Reason: mild pain) albuterol sulfate 90 mcg/actuation HFA aerosol inhaler 2 puff inhalation Q4-6H PRN (Reason: wheezing) apixaban 5 mg Tablet See Rx Instructions .ROUTE .COMPLEX Rx Instructions: 5 mg orally BID; START DATE: 08/12/23 Eliquis DVT-PE Treat 30D Start 5 mg (74 tabs) tablets,dose pack See Rx Instructions .ROUTE .COMPLEX Rx Instructions: 10 mg orally BID; END DATE: 08/11/23 acetaminophen [Tylenol] 325 mg Tablet 650 mg PO Q6H PRN (Reason: Headache) Print Language: Japanese
[2024-06-25 20:11] VITALS: BP 126/72; PULSE 97; RESP 20; TEMP 39; O2SAT 97; BMI 45.5
[2024-06-25 21:42] LABS: Influenza A PCR NEGATIVE (Negative); Influenza B PCR NEGATIVE (Negative); Resp Syncy Virus RNA Qual PCR NEGATIVE (Negative); SARS COV2 PCR INHOUSE NEGATIVE (Negative)
[2024-06-26 03:42] VITALS: BP 125/77; PULSE 99; RESP 20; TEMP 39.2; O2SAT 95
[2024-06-26] MEDS: Acetaminophen 325 MG TABLET 650 MG PO (03:46)
[2024-06-26 04:07] LABS: Basophils Percent Auto 0.4 % (0-2); Eosinophils Percent Auto 0.2 % (0-4); Hematocrit 38.3 % (42.0-52.0); Hemoglobin 13.2 g/dl (14.0-18.0); Imm Gran Abs Auto 0.03 X10*3/uL (0.00-0.03); Imm Gran Pct Auto 0.4 % (0.0-0.4); Lymphocytes Absolute Auto 1.3 X10*3/uL (1.2-4.9); Lymphocytes Percent Auto 15.7 % (20-40); MANUAL DIFF FLAG NO; Mean Corpuscular HGB Conc 34.5 g/dl (31.0-36.0); Mean Platelet Volume 8.6 fL (9.4-12.4); Monocytes Absolute Auto 0.8 X10*3/uL (0.1-1.2); Monocytes Percent Auto 9.2 % (2-11); Neutrophils Absolute Auto 6.1 x10*3/uL (2.0-8.3); Neutrophils Percent Auto 74.1 % (45-73); Platelet Count 181 X10*3/uL (160-400); Red Blood Count 4.12 X10*6/uL (4.60-5.80); Red Cell Distribution Width 12.9 % (11.0-16.0); White Blood Count 8.2 X10*3/uL (4.8-10.8)
[2024-06-26 04:18] LABS: Anion Gap 15 (12-20); Blood Urea Nitrogen 8 mg/dL (9-16); Calcium 9.3 mg/dL (8.4-10.2); Carbon Dioxide 25 mmol/L (22-29); Chloride 103 mmol/L (96-108); Creatinine Clr Calc Pharmacy 140.9; Estimated Glomerular Filt Rate > 60; Glucose Random 114 mg/dL (60-115); Sodium 139 mmol/L (135-145)
[2024-06-26 04:54] VITALS: BP 94/52; PULSE 83; RESP 19; TEMP 36.5; O2SAT 95
--- NOTE | 2024-06-26 04:57 | PC.NURSE ---
this rn assumed care of pt. pt a&ox4, respirations even and unlabored, lung sounds noted to have expiratory wheezes bilaterally.. pt reports lung congestion and cough starting x2 days ago, pt producing clear and light greenish-yellow phlegm. pt reports episodes of dizziness/sob after coughing, denies syncope. pt denies chest pain. pt reports fever and chills x2 days. normal sinus 80 on tele. pt was treated for bronchitis x2 weeks ago, pt reports this 'feels like pneumonia' which he has had in the past.
[2024-06-26] MEDS: levoFLOXacin 750 MG TABLET PO (06:05)
[2024-06-26 06:12] VITALS: BP 97/61; PULSE 72; RESP 15; TEMP 37.1; O2SAT 93
== END 2024-06-26 06:13 | disposition home or self-care (01) ==
PROVIDERS: Physician Assistant; Emergency Provider Emergency Medicine
DX: J18.9 Pneumonia, unspecified organism (principal); R50.9 Fever, unspecified; Z03.818 Encounter for observation for suspected exposure to other biological agents ruled out; R05.9 Cough, unspecified; Z87.891 Personal history of nicotine dependence; Z86.718 Personal history of other venous thrombosis and embolism; Z79.01 Long term (current) use of anticoagulants; Z79.899 Other long term (current) drug therapy
CPT/HCPCS: 0241U; 36415; 71046; 80048; 85025; 99284

== ENCOUNTER 2024-10-03 12:50 | Emergency (ER) | payer OTHER, SELFPAY ==
[2024-10-03 13:34] VITALS: BP 139/91; PULSE 64; RESP 18; TEMP 35.6; O2SAT 99; BMI 43.2
--- NOTE | 2024-10-03 13:35 | ECG_ITS ---
Test Reason : back pain Blood Pressure : */* mmHG Vent. Rate : 59 BPM Atrial Rate : 59 BPM P-R Int : 144 ms QRS Dur : 82 ms QT Int : 402 ms P-R-T Axes : 41 6 11 degrees QTcB Int : 397 ms Sinus bradycardia with sinus arrhythmia Otherwise normal ECG When compared with ECG of 13-Jun-2024 17:19, No significant change was found Referred By: Thiago Sow Electronically Signed By: Oscar Swanson
--- NOTE | 2024-10-03 13:35 | ED.GENADULT ---
HPI - General Adult General Chief complaint: Back Pain/Injury Stated complaint: Tightness Migraines Etc Time Seen by Provider: 10/03/24 18:23 Source: patient Mode of arrival: ambulatory Limitations: no limitations History of Present Illness HPI narrative: This is a 34-year-old man with a past medical history of DVT/PE on Eliquis, status post removal of IVC filter who presents for evaluation of left lower back pain. Patient states that he has had cramping pain in his left lower back over the last several days that radiates down his left lateral leg. The patient states no traumatic injury. Patient states no previous back injury or back surgery. Patient states that he noticed that when he was ?hunched over with a shopping cart? his back pain was worsened. Patient reports not taking any medications to treat his pain. Patient states no fevers or chills. Patient states no extremity paresthesias or weakness. Patient states no associated urinary retention or incontinence. Patient reports no obstipation or incontinence of stool. He states otherwise he has on occasionally had some headaches, but states no headache at this time. He once again states no traumatic injury. He states no associated lightheadedness or loss of consciousness. Patient states that he had a burning sensation in his lungs when he had bronchitis and pneumonia this past fall, but states that he is not experiencing these symptoms this time. He states no cough, sputum production or hemoptysis. He states no exertional symptoms or chest pain. He states no other GI or symptoms. He otherwise reports feeling well and taking his medications as prescribed. Related Data Home Medications ?Medication ?Instructions ?Recorded ?Confirmed acetaminophen 325 mg tablet 650 mg PO Q6H PRN Headache 08/07/23 09/07/23 (Tylenol) albuterol sulfate 90 mcg/actuation 2 puff inhalation Q4-6H PRN 08/07/23 09/07/23 aerosol inhaler wheezing apixaban 5 mg (74 tabs) tablets in See Rx Instructions .Route .COMPLEX 08/07/23 09/07/23 a dose pack (Eliquis DVT-PE Treat 30D Start) apixaban 5 mg tablet See Rx Instructions .Route .COMPLEX 08/07/23 09/07/23 lidocaine 5 % topical patch 1 patch topical DAILY PRN mild pain 08/07/23 09/07/23 Previous Rx's ?Medication ?Instructions ?Recorded albuterol sulfate 90 mcg/actuation 2 puff inhalation QID PRN 06/13/24 aerosol inhaler shortness of breath or wheezing #6.7 grams amoxicillin 875 mg-potassium 1 tab PO BID #14 tabs 06/13/24 clavulanate 125 mg tablet levofloxacin 750 mg tablet 750 mg PO DAILY #14 tabs 06/26/24 Allergies Allergy/AdvReac Type Severity Reaction Status Date / Time No Known Allergies Allergy Verified 10/03/24 13:36 Review of Systems Review of Systems: ROS as per HPI [facility] Past Medical History Medical History DVT (deep venous thrombosis) Family History Family History Other Blood clotting tendency Social History Social History Household Members: Family Housing: Apartment Do you presently have visiting nurse or other home services: No Alcohol intake: current Alcohol intake frequency: holidays/special occasions only Patient Tobacco Use Status: Former Tobacco user Tobacco use type: Cigarette Substance Use Type: Caffiene Advance Directives: Yes Advance Directives on File: Yes Advance Directives Date on File: 08/12/23 Do you have a plan to hurt others: No Plan service: No Physical Exam ED Vital Signs: Vital Signs - 24 hr 10/03/24 13:34 10/03/24 18:31 Temperature 96.1 F L 98.0 F Pulse Rate 64 71 Respiratory Rate 18 18 Blood Pressure 139/91 H 148/92 H Pulse Oximetry 99 100 Oxygen Delivery Method Room Air Room Air BMI result Body Mass Index 43.2 Gen: NAD, AOx3 HEENT: NCAT, EOMI, normal conjunctiva CV: RRR, no murmurs appreciated, 2+ bilateral DP/PT pulses Pulm: CTAB, no increased work of breathing GI: Soft, NTND, no rebound, guarding or rigidity MSK: Bilateral lower extremity compartments are soft with intact overlying skin and no overlying skin changes, no midline vertebral tenderness to palpation overlying skin changes/crepitus, mild tenderness to palpation to the left lumbar region without overlying skin changes, no asymmetrical calf edema/erythema/TTP Neuro: Grossly non focal. 5/5 strength with bilateral hip/knee/ankle/great hallux flexion/extension Course Course Course Narrative: RME, this is a rapid medical exam performed by Jose Sow please refer to primary provider for complete H&P- 34-year-old male presents evaluation of back pain that radiates to his left leg as well as tightness and headaches. Plan for labs, EKG, troponin Medical Decision Making Medical Decision Making [facility] Narrative: Differential diagnosis includes, but is not limited to lumbar strain, lumbar sprain, lumbar stenosis, sciatica. Patient is afebrile and hemodynamically stable on room air. Exam is benign and reassuring. Patient has no focal neurological deficits. He has no ?red flag? symptoms associated with his back pain to necessitate any further emergent evaluation such as with MRI and exam as aforementioned is reassuring. Patient was offered supportive care here in the emergency room with analgesics, but he politely declines. On re-examination, patient is well-appearing and in no acute distress. ?There is no indication for further emergent evaluation in this otherwise well-appearing patient as above. ?Patient is provided written and verbal instructions, educational materials, recommendations for outpatient follow-up, strict return precautions and teach back is performed. ?Patient states understanding and agreement with plan of care. ?Patient is discharged home in stable and improved condition. Admission/Observation Consideration of admission/observation: Escalation of care including admission/observation considered Consult Healthcare Provider Management of the patient was discussed with: Hospitalist Lab Data [facility] Lab Attestation statement: I reviewed the patient's lab results. I independently reviewed and interpreted patient's labs including CBC, coagulation studies, metabolic panel, troponin, lipase, which are all benign and reassuring. The patient has tested negative for COVID-19, influenza and RSV. Urinalysis is noncontributory. 10/03/24 14:14 10/03/24 14:14 Labs: Lab Results 10/03/24 10/03/24 Range/Units 14:14 18:30 WBC 5.6 (4.8-10.8) X10*3/uL RBC 4.75 (4.60-5.80) X10*6/uL Hgb 14.9 (14.0-18.0) g/dl Hct 43.3 (42.0-52.0) % MCV 91.2 (80.0-98.0) fL MCH 31.4 (27.0-33.0) pg MCHC 34.4 (31.0-36.0) g/dl RDW 12.6 (11.0-16.0) % Plt Count 238 D (160-400) X10*3/uL MPV 8.6 L (9.4-12.4) fL Immature Gran % (Auto) 0.4 (0.0-0.4) % Neut % (Auto) 51.4 (45-73) % Lymph % (Auto) 36.3 (20-40) % [place] % (Auto) 8.9 (2-11) % Eos % (Auto) 2.5 (0-4) % Baso % (Auto) 0.5 (0-2) % Lymph # (Auto) 2.1 (1.2-4.9) X10*3/uL [place] # (Auto) 0.5 (0.1-1.2) X10*3/uL Eos # (Auto) 0.1 (0.0-0.4) X10*3/uL Baso # (Auto) 0.0 (0.0-0.2) X10*3/uL Abs Immat Gran (auto) 0.02 (0.00-0.03) X10*3/uL Absolute Neuts (auto) 2.9 (2.0-8.3) x10*3/uL Absolute Nucleated RBC 0.000 (0.0-0.012) X10*3/uL Nucleated RBC % (auto) 0.0 (0.0-0.2) /100WBC PT 11.8 (10.9-12.4) SEC INR 1.0 (0.9-1.1) Sodium 139 (135-145) mmol/L Potassium 4.2 (3.3-5.1) mmol/L Chloride 109 H (96-108) mmol/L Carbon Dioxide 27 (22-29) mmol/L Anion Gap 7 L (12-20) BUN 13 (9-16) mg/dL Creatinine 1.03 (0.5-1.4) mg/dL Estim Creat Clear Calc 143.6 Estimated GFR > 60 Random Glucose 102 (60-115) mg/dL Calcium 9.3 (8.4-10.2) mg/dL Total Bilirubin 0.3 (0.0-1.0) mg/dL AST 31 (5-37) U/L ALT 54 H (0-40) U/L Alkaline Phosphatase 60 (39-117) U/L Troponin I High Sens < 2.7 (<3.5-35.0) ng/L Total Protein 7.9 (6.5-8.0) g/dL Albumin 4.2 (3.5-5.0) g/dL Lipase 15 (8-78) U/L Urine Color Yellow Urine Appearance Clear Urine pH 5.5 (5.0-9.0) Ur Specific [place] 1.015 (1.005-1.025) Urine Protein Negative (Neg-Trace) mg/dL Urine Glucose (UA) Negative (Negative) mg/dL Urine Ketones Negative (Negative) mg/dL Urine Blood Negative (Negative) Urine Nitrite Negative (Negative) Ur Leukocyte Esterase Trace H (Negative) Urine RBC 0-2 (0-2) /HPF Urine WBC 0-5 (0-5) /HPF Ur Squamous Epith Cells 0-2 (0-2) /HPF Urine Bacteria None Seen (None Seen) Hyaline Casts 0-2 (0-2) /LPF Influenza Type A (PCR) NEGATIVE (Negative) Influenza Type B (PCR) NEGATIVE (Negative) RSV RNA Qual (PCR) NEGATIVE (Negative) SARS-CoV-2 RNA (RT-PCR) NEGATIVE (Negative) Independent Interpretation I performed an independent interpretation of an: EKG Interpretation: I independently reviewed and interpreted the patient's EKG, which demonstrates some baseline artifact in V3, otherwise demonstrates sinus bradycardia at 59 beats per minute, VA 144, QRS 82, QTC 397, no STEMI Discharge Plan Discharge Clinical Impression: Back pain Patient Disposition: Home, Self-Care Instructions: Back Pain (ED) Additional Instructions: You were seen and evaluated in the emergency room. Your vital signs were reassuring. Your blood work and EKG were very reassuring. Please follow-up with your primary care doctor in the next 5-7 days. ? Please return to the emergency room if you develop any worsening symptoms including, but not limited to fever, leg weakness, numbness/tingling in your legs/groin or inability to urinate. Prescriptions: No Action albuterol sulfate 90 mcg/actuation HFA aerosol inhaler 2 puff inhalation QID PRN (Reason: shortness of breath or wheezing) Qty: 6.7 0RF amoxicillin-pot clavulanate 875-125 mg tablet 1 tab PO BID Qty: 14 0RF levofloxacin 750 mg tablet 750 mg PO DAILY Qty: 14 0RF lidocaine 5 % adhesive patch,medicated 1 patch topical DAILY PRN (Reason: mild pain) albuterol sulfate 90 mcg/actuation HFA aerosol inhaler 2 puff inhalation Q4-6H PRN (Reason: wheezing) apixaban 5 mg Tablet See Rx Instructions .ROUTE .COMPLEX Rx Instructions: 5 mg orally BID; START DATE: 08/12/23 Eliquis DVT-PE Treat 30D Start 5 mg (74 tabs) tablets,dose pack See Rx Instructions .ROUTE .COMPLEX Rx Instructions: 10 mg orally BID; END DATE: 08/11/23 acetaminophen [Tylenol] 325 mg Tablet 650 mg PO Q6H PRN (Reason: Headache) Print Language: [place]ian
[2024-10-03 14:19] LABS: MANUAL DIFF FLAG NO
[2024-10-03 14:20] LABS: Basophils Percent Auto 0.5 % (0-2); Eosinophils Absolute Auto 0.1 X10*3/uL (0.0-0.4); Eosinophils Percent Auto 2.5 % (0-4); Hematocrit 43.3 % (42.0-52.0); Hemoglobin 14.9 g/dl (14.0-18.0); Imm Gran Abs Auto 0.02 X10*3/uL (0.00-0.03); Imm Gran Pct Auto 0.4 % (0.0-0.4); Lymphocytes Absolute Auto 2.1 X10*3/uL (1.2-4.9); Lymphocytes Percent Auto 36.3 % (20-40); Mean Corpuscular HGB Conc 34.4 g/dl (31.0-36.0); Mean Corpuscular Hemoglobin 31.4 pg (27.0-33.0); Mean Corpuscular Volume 91.2 fL (80.0-98.0); Mean Platelet Volume 8.6 fL (9.4-12.4); Monocytes Absolute Auto 0.5 X10*3/uL (0.1-1.2); Monocytes Percent Auto 8.9 % (2-11); Neutrophils Absolute Auto 2.9 x10*3/uL (2.0-8.3); Neutrophils Percent Auto 51.4 % (45-73); Platelet Count 238 X10*3/uL (160-400); Red Blood Count 4.75 X10*6/uL (4.60-5.80); Red Cell Distribution Width 12.6 % (11.0-16.0); White Blood Count 5.6 X10*3/uL (4.8-10.8)
[2024-10-03 14:25] LABS: Prothrombin Time 11.8 SEC (10.9-12.4)
[2024-10-03 14:33] LABS: Alanine Aminotransferase 54 U/L (0-40); Albumin Level 4.2 g/dL (3.5-5.0); Alkaline Phosphatase 60 U/L (39-117); Anion Gap 7 (12-20); Aspartate Amino Transferase 31 U/L (5-37); Bilirubin Total 0.3 mg/dL (0.0-1.0); Blood Urea Nitrogen 13 mg/dL (9-16); Calcium 9.3 mg/dL (8.4-10.2); Carbon Dioxide 27 mmol/L (22-29); Chloride 109 mmol/L (96-108); Creatinine Clr Calc Pharmacy 143.6; Estimated Glomerular Filt Rate > 60; Glucose Random 102 mg/dL (60-115); Lipase 15 U/L (8-78); Potassium 4.2 mmol/L (3.3-5.1); Sodium 139 mmol/L (135-145); Total Protein 7.9 g/dL (6.5-8.0)
[2024-10-03 14:41] LABS: Troponin-I High Sensitivity < 2.7 ng/L (<3.5-35.0)
[2024-10-03 15:00] LABS: Influenza A PCR NEGATIVE (Negative); Influenza B PCR NEGATIVE (Negative); Resp Syncy Virus RNA Qual PCR NEGATIVE (Negative); SARS COV2 PCR INHOUSE NEGATIVE (Negative)
--- OUTSIDE RECORDS SUMMARY | 2024-10-03 15:18 | XMS_ITS | Continuity of Care Document ---
Author Organization [facility] Address [address] [place] [address] Phone Care Team Providers Care Clay Mixer Name Role Phone Z-Converted, Provider Unavailable Unavailabl e Advance Directives Directive Yes / No Effective Date File Name No Information Encounters Encounter Description Practice Location Reason(s) For Visit Diagnoses Date Provider Providers Copied on Encounter [facility], [address] [place] [address],[address], [place], [place], [id number], [place] tel:[phone] [facility] Abnormal chest sounds 4 Z-Convert ed Provider. . Family History Family Member Type Diagnosis Age At Onset No Information Immunizations Vaccine Date Status Comments Varicella (Chicken Pox) administered Sour ce: New Immunization Record Hepatitis B (a) CHILD administered Source : New Immunization Record Hepatitis B (a) CHILD administered Source : New Immunization Record Measles Mumps Rubella administered Source : New Immunization Record Diphtheria Tetanus Pertussis administered Source: New Immunization Record POLIO (INJECTION) ADDITIONAL administered Source: New Immunization Record Polio (Injection) administered Source: Ne w Immunization Record Diphtheria Tetanus Pertussis administered Source: New Immunization Record Measles Mumps Rubella administered Source : New Immunization Record Hemophilus Influenza B administered Sourc e: New Immunization Record Hepatitis B (a) CHILD administered Source : New Immunization Record Diphtheria Tetanus Pertussis administered Source: New Immunization Record Diphtheria Tetanus Pertussis administered Source: New Immunization Record Polio (Injection) administered Source: Ne w Immunization Record Polio (Injection) administered Source: [facility] Immunization Record Diphtheria Tetanus Pertussis administered Source: New Immunization Record Polio (Injection) administered Source: [facility] Immunization Record Payers Payer name Insurance type Covered constitution party ID Authoriza tion(s) No Information Social History Type Description Quantity Date Captured Comments Sex Male Smoking Status No Information Chief Complaint And Reason For Visit No Information Reason For Referral Reason For Referral No Information History Of Present Illness Encounter Date Complaint History Of Prese nt Illness No Information Functional Status Date Functional Assessmen t No Information Instructions Date Instruction Additional Infor mation No Information Assessments Type Assessment Date No Information Patient Care Teams Name Effective Dates (start - stop) Status Members No Information
[2024-10-03 18:31] VITALS: BP 148/92; PULSE 71; RESP 18; TEMP 36.7; O2SAT 100
[2024-10-03 18:41] LABS: Appearance Urine Clear; Color Urine Yellow; Glucose Urine UA Negative (Negative); Leukocyte Esterase Urine Trace (Negative); Nitrite Urine Negative (Negative); PH 5.5 (5.0-9.0); Specific Gravity - Urine 1.015 (1.005-1.025); UMIC TRIGGER UACC YES; Urine Blood Negative (Negative); Urine Ketones Negative (Negative); Urine Protein Negative (Neg-Trace)
[2024-10-03 18:46] LABS: Bacteria Urine None Seen (None Seen); Hyaline Casts Urine 0-2 /LPF (0-2); RBC Urine 0-2 /HPF (0-2); Squamous Epithelial Cell Urine 0-2 /HPF (0-2); WBC Urine 0-5 /HPF (0-5)
[2024-10-03 19:25] VITALS: BP 0/0; PULSE 0; RESP 0; TEMP -17.7; TEMP 0; O2SAT 0
== END 2024-10-03 19:33 | disposition home or self-care (01) ==
PROVIDERS: Physician Assistant; Emergency Provider Emergency Medicine
DX: M54.50 Low back pain, unspecified (principal); G43.909 Migraine, unspecified, not intractable, without status migrainosus; R00.1 Bradycardia, unspecified; I49.8 Other specified cardiac arrhythmias; Z79.01 Long term (current) use of anticoagulants; Z86.718 Personal history of other venous thrombosis and embolism; Z03.818 Encounter for observation for suspected exposure to other biological agents ruled out; Z79.899 Other long term (current) drug therapy
CPT/HCPCS: 0241U; 80053; 81001; 83690; 84484; 85025; 85610; 93005; 99283; 99284

== ENCOUNTER → 2024-10-03 13:35 | Outpatient (BNV) | payer OTHER, SELFPAY | PROVIDERS: Emergency Provider Emergency Medicine; Visit Provider Internal Medicine Cardiovascular Disease | DX: R00.1 Bradycardia, unspecified (principal); M54.9 Dorsalgia, unspecified | CPT/HCPCS: 93010 ==